=== PATIENT | male | born 1955 | race Caucasian/White ===

== ENCOUNTER 2018-04-17 13:36 | Inpatient (IN) | payer OTHER ==
[2018-04-17 15:01] VITALS: BMI 31.4
--- NOTE | 2018-04-17 18:53 | HP ---
CIWA Score Nausea/Vomitin-No Nausea/No Vomiting ("BAD ACID") Muscle Tremors: 4-Moderate,w/Arms Extend Anxiety: 4-Mod. Anxious/Guarded Agitation: 3 Paroxysmal Sweats: 1-Minimal Palms Moist Orientation: 0-Oriented Tacttile Disturbances: 0-None Auditory Disturbances: 0-None Visual Disturbances: 0-None Headache: 0-None Present CIWA-Ar Total Score: 12 - Admission Criteria [facility]ASAS Guidelines: Admission for Medically Managed Detox: Requires at least one of the followin. CIWA greater than 12 2. Seizures within the past 24 hours 3. Delirium tremens within the past 24 hours 4. Hallucinations within the past 24 hours 5. Acute intervention needed for co occurring medical disorder 6. Acute intervention needed for co occurring psychiatric disorder 7. Severe withdrawal that cannot be handled at a lower level of care (continued vomiting, continued diarrhea, abnormal vital signs) requiring intravenous medication and/or fluids 8. Patient presents the following: CIWA greater than 12 Admission Criteria Met: Admission criteria met Admission ROS S - HPI Chief Complaint: "TIRED OF WAKING UP EVERYDAY DRINKING AND USING PILLS. I'M NOT A YOUNG KID ANYMORE". History of Present Illness: NEGATIVE ENVIRONMENTAL SAMPLER REPORT. PT IS A 62 Y/O MALE WITH A HX OF ALCOHOL, KLONOPIN AND XANAX DEPENDENCE ON METHADONE MAINTENANCE WITH METHADONE 180 MG PO DAILY AT [facility]- [facility] REPORTS LAST DOSE RECEIVED TODAY AND SEEKING DETOX TX. PT WAS HERE IN REHAB IN 2010 AND STATES HE HAS BEEN TO OTHER TREATMENT FACILITIES FOR MARY TREATMENTS. PT HAS BEEN DRINKING ALCOHOL SINCE THE AGE OF 11 AND USING BENZOS SINCE 49 Y/O. PT REPORTS HX OF "BAD ACID REFLUX" AND TAKING OMEPRAZOLE. ALSO STATES HE TAKES ASPIRIN 81 MG DAILY A PRECAUTION STATING HIS PMD'S ADVICE. PT REPORTS HE HAS PRIMARY CARE AT [facility] ON [address] [place] [address]. PH: [phone] WOODARD. Exam Limitations: No Limitations - Ebola screening Have you traveled outside of the country in the last 21 days: No Have you had contact with anyone from an Ebola affected area: No Have you been sick,other than usual withdrawal symptoms: No - Review of Systems Constitutional: Changes in sleep EENT: reports: Blurred Vision (USES READING GLASSES), Dental Problems Respiratory: reports: No Symptoms reported Cardiac: reports: No Symptoms Reported GI: reports: Indigestion : reports: Dysuria, Frequency (STATES HE WAS TAKING FLOMAX BUT STOPPED.) Musculoskeletal: reports: Back Pain, Joint Pain, Muscle Pain, Joint Stiffness Integumentary: reports: Bruising (SOMETIMES) Neuro: reports: Headache, Tremors Endocrine: reports: No Symptoms Reported Hematology: reports: Anemia ("IN 2017 AT THE PROGRAM"), Other ( 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) Psychiatric: reports: Orientated x3, Anxious Other Systems: Reviewed and Negative Patient History - Patient Medical History Hx Anemia: Yes (IRON PILL IN THE PAST) Hx Asthma: No Hx Cardiac Disorders: No Hx Hypertension: No Hx Hypercholesterolemia: No HX Cerebrovascular Accident: No Hx Seizures: No Hx Diabetes: No Hx Gastrointestinal Disorders: Yes (OMEPRAZOLE) Hx Genitourinary Disorders: Yes (FREQUENCY) Hx Sexually Transmitted Disorders: No (DENIES) Hx Renal Disease (ESRD): No Hx Thyroid Disease: No Hx Human Immunodeficiency Virus (HIV): No (NEGATIVE HX) Hx Hepatitis C: Yes ("I WAS EXPOSED TO IT; NUMBERS WERE LOW-20 YRS AGO") Hx Depression: No Hx Suicide Attempt: No (DENIES S/I) Hx Bipolar Disorder: No Hx Schizophrenia: No - Patient Surgical History Past Surgical History: Yes Hx Neurologic Surgery: No Hx Cataract Extraction: No Hx Cardiac Surgery: No Hx Lung Surgery: No Hx Breast Surgery: No Hx Breast Biopsy: No Hx Abdominal Surgery: No Hx Appendectomy: Yes (40 YRS AGO) Hx Cholecystectomy: No Hx Genitourinary Surgery: No Hx Orthopedic Surgery: No Anesthesia Reaction: No - PPD History Previous Implant?: Yes (AT [facility]) Documented Results: Negative w/o proof Implanted On Prior [facility] Admission?: No PPD to be Administered?: Yes - Reproductive History Patient is a Female of Child Bearing Age (11 -55 yrs old): No - Smoking Cessation Smoking history: Current every day smoker Have you smoked in the past 12 months: Yes Aproximately how many cigarettes per day: 4 Hx Chewing Tobacco Use: No Initiated information on smoking cessation: Yes 'Breaking Loose' booklet given: 04/17/18 - Substance & Tx. History Hx Alcohol Use: Yes Hx Substance Use: Yes Substance Use Type: Alcohol, Heroin, Tranquilizers Hx Substance Use Treatment: Yes - Substances Abused Alcohol Route: Oral Frequency: Daily Amount used: 1/2 [place] Age of first use: 11 Date of Last Use: 04/17/18 Benzodiazepine (Klonopin) Route: Oral Frequency: Daily Amount used: 3/1MG Age of first use: 49 Date of Last Use: 04/17/18 Alprazolam (Xanax) Route: Oral Frequency: Daily Amount used: 1/2MG Age of first use: 49 Date of Last Use: 04/17/18 Family Disease History - Family Disease History Family Disease History: Diabetes: Grandparent (DIALYSIS), CA: Father (PROSTATE CA), Mother (CA BLADDER;QUAD BYPASS), Other: Grandparent, Mother Admission Physical Exam [facility] - Vital Signs Vital Signs: Vital Signs - 24 hr 04/17/18 14:58 Temperature 97.1 F L Pulse Rate 74 Respiratory 18 Rate Blood Pressure 117/73 - Physical General Appearance: Yes: Mild Distress, Irritable, Anxious HEENTM: Yes: EOMI, Normocephalic, CAMILO, Pharynx Normal Respiratory: Yes: Chest Non-Tender, Lungs Clear, Normal Breath Sounds, No Respiratory Distress Neck: Yes: No masses,lesions,Nodules, Supple, Trachea in good position - Diagnostic (1) Alcohol dependence with uncomplicated withdrawal Current Visit: Yes Status: Acute (2) Sedative, hypnotic or anxiolytic dependence with withdrawal, uncomplicated Current Visit: Yes Status: Acute (3) GERD (gastroesophageal reflux disease) Current Visit: Yes Status: Chronic Qualifiers: Esophagitis presence: esophagitis presence not specified Qualified Code(s) : K21.9 - Gastro-esophageal reflux disease without esophagitis (4) History of anemia Current Visit: Yes Status: Suspected Cleared for Admission [facility] - Detox or Rehab [facility] Level of Care: Medically Managed Detox Regimen/Protocol: Valium [facility] Breath Alcohol Content Breath Alcohol Content: 0.029 Urine Drug Screen - Results Drug Screen Negative: No Urine Drug Screen Results: EMILIE-Cocaine, OPI-Opiates, BZO-Benzodiazepines, MTD- Methadone, FEN-Fentanyl
[2018-04-17] MEDS ORDERED: guaiFENesin/D-METHORPHAN HB 10 ML UNIT-DOSE CUPS PO PRN (19:43)
[2018-04-17] MEDS ORDERED: P-EPHED 60MG/TRIPROLIDI 2.5MG TABLET PO PRN (19:43)
[2018-04-17] MEDS ORDERED: MAGNESIUM CITRATE 300 ML BOTTLE PO PRN (19:43)
[2018-04-17] MEDS ORDERED: diazePAM 5 MG TABLET PO ONE (19:43)
[2018-04-17] MEDS ORDERED: IBUPROFEN 400 MG TABLET (FP) PO PRN (19:43)
[2018-04-17] MEDS ORDERED: MENTHOL/PHENOL 1 EACH UD MM PRN (19:43)
[2018-04-17] MEDS ORDERED: ACETAMINOPHEN 325 MG TABLET (FP) PO PRN (19:43)
[2018-04-17] MEDS ORDERED: LOPERAMIDE HCL 2 MG CAPSULE PO PRN (19:43)
[2018-04-17] MEDS: THIAMINE HCL 100 MG TABLET (FP) PO SCH (21:26)
[2018-04-17] MEDS: NICOTINE 7 MG/24 HOURS TOPICAL PATCH TD SCH (21:42)
[2018-04-17] MEDS: MAG HYDROX/AL HYDROX/SIMETH 30 ML UNIT-DOSE CUP PO PRN (21:55)
[2018-04-17] MEDS ORDERED: MELATONIN 5 MG TABLETS PO PRN (22:00)
[2018-04-17] MEDS: diazePAM 5 MG TABLET PO SCH (23:31)
[2018-04-18] MEDS: diazePAM 5 MG TABLET PO SCH ×3 (05:18→22:08)
[2018-04-18] MEDS ORDERED: METHADONE HCL 10 MG TABLET PO SCH (09:15)
[2018-04-18] MEDS: NICOTINE 7 MG/24 HOURS TOPICAL PATCH TD SCH (10:13)
[2018-04-18] MEDS: PRENATAL VITAMINS W/ FOLIC ACID TABLET (FP) PO SCH (10:13)
[2018-04-18] MEDS: diazePAM 5 MG TABLET PO PRN (10:14)
[2018-04-18] MEDS ORDERED: PANTOPRAZOLE 20 MG TABLET (FP) PO ONE (10:21)
[2018-04-18] MEDS ORDERED: METHADONE 160 MG, METHADONE 20 MG PO SCH (10:30)
[2018-04-18] MEDS ORDERED: METHADONE HCL 10 MG TABLET ONE (10:42)
[2018-04-18] MEDS ORDERED: METHADONE HCL 40 MG DISPERSABLE TABLET ONE (10:43)
[2018-04-18 11:01] LABS: HEMATOCRIT 33.1 % (35.4-49); HEMOGLOBIN 11.3 GM/dL (11.7-16.9); MCH 27.5 pg (25.7-33.7); MEAN PLT VOLUME 7.5 fl (7.5-11.1); PLATELET COUNT 278 K/MM3 (134-434); RBC 4.09 M/mm3 (4.00-5.60); RDW 14.1 % (11.9-15.9); WHITE BLOOD COUNT 5.4 K/mm3 (4.0-10.0)
[2018-04-18 11:27] LABS: ALBUMIN 3.1 g/dl (3.4-5.0); ALK PHOS 70 U/L (45-117); ANION GAP 5 MMOL/L (8-16); BILIRUBIN,TOTAL 0.5 mg/dL (0.2-1); BLOOD UREA NITROGEN 22 mg/dL (7-18); CALCIUM 8.5 mg/dL (8.5-10.1); CHLORIDE 105 mmol/L (98-107); CO2 32 mmol/L (21-32); CREATININE 0.9 mg/dL (0.55-1.3); GLUCOSE,RANDOM 69 mg/dL (74-106); POTASSIUM 4.2 mmol/L (3.5-5.1); SGOT/AST 21 U/L (15-37); SGPT/ALT 22 U/L (13-61); SODIUM 142 mmol/L (136-145)
[2018-04-18] MEDS: METHADONE 160 MG, METHADONE 20 MG PO SCH (11:30)
[2018-04-18] MEDS: ASPIRIN 81 MG CHEWABLE TABLETS PO SCH (13:09)
[2018-04-18] MEDS: amLODIPine BESYLATE 2.5 MG TABLET (FP) PO SCH (13:09)
--- NOTE | 2018-04-18 13:24 | EKG ---
Test Reason : Blood Pressure : / mmHG Vent. Rate : 061 BPM Atrial Rate : 061 BPM P-R Int : 178 ms QRS Dur : 084 ms QT Int : 438 ms P-R-T Axes : 031 004 033 degrees QTc Int : 440 ms POOR DATA QUALITY, INTERPRETATION MAY BE ADVERSELY AFFECTED NORMAL SINUS RHYTHM ABNORMAL ECG NO PREVIOUS ECGS AVAILABLE Confirmed by ANASTASIA MORRISON MD ([id number]) on 04/18/2018 1:24:05 PM Referred By: Confirmed By:ANASTASIA MORRISON MD
--- NOTE | 2018-04-18 16:23 | PN ---
S CIWA - CIWA Score Nausea/Vomitin-No Nausea/No Vomiting Muscle Tremors: 3 Anxiety: 3 Agitation: 2 Paroxysmal Sweats: No Perspiration Orientation: 0-Oriented Tacttile Disturbances: 2-Mild Itch/Numbness/Burn Auditory Disturbances: 2-Mild Harshness/Frighten Visual Disturbances: 0-None Headache: 0-None Present CIWA-Ar Total Score: 12 BHS Progress Note (SOAP) Subjective: Stomach Cramping, Anxious, Body Aches, Tremors. Objective: PATIENT A & O X 3, OBSERVED AMBULATING ON UNIT WITH ASSISTANCE OF A WALKER. IN NO ACUTE DISTRESS. 04/18/18 16:21 Vital Signs Temperature 97.8 F 04/18/18 13:39 Pulse Rate 77 04/18/18 13:39 Respiratory Rate 18 04/18/18 13:39 Blood Pressure 94/65 04/18/18 13:39 O2 Sat by Pulse Oximetry (%) Laboratory Tests 04/18/18 04/18/18 04/18/18 07:50 07:50 07:50 WBC 5.4 RBC 4.09 Hgb 11.3 L Hct 33.1 L MCV 81.0 MCH 27.5 MCHC 34.0 RDW 14.1 Plt Count 278 MPV 7.5 Sodium 142 Potassium 4.2 Chloride 105 Carbon Dioxide 32 Anion Gap 5 L BUN 22 H Creatinine 0.9 Creat Clearance w eGFR > 60 Random Glucose 69 L Calcium 8.5 Total Bilirubin 0.5 AST 21 ALT 22 Alkaline Phosphatase 70 Total Protein 6.0 L Albumin 3.1 L RPR Titer Nonreactive LABS NOTED. UA RESULTS PENDING. Assessment: 04/18/18 16:22 WITHDRAWAL SYMPTOMS. Plan: CONTINUE DETOX. INCREASE DAILY PO FLUID INTAKE.
[2018-04-18 16:26] LABS: URINE APPEARANCE SLCLOUDY; URINE BILIRUBIN NEGATIVE (<2.0 mg/dL); URINE COLOR YELLOW; URINE GLUCOSE (UA) NEGATIVE (NEGATIVE); URINE KETONE NEGATIVE (NEGATIVE); URINE LEUK ESTERASE TRACE (NEGATIVE); URINE NITRITE NEGATIVE (NEGATIVE); URINE PROTEIN NEGATIVE (NEGATIVE); URINE UROBILINOGEN NEGATIVE mg/dL (0.2-1.0)
[2018-04-18 16:38] LABS: EPI CELLS RARE /HPF (FEW); URINE BACTERIA RARE /hpf (NONE SEEN); URINE HYALINE CAST 1 /lpf; URINE MUCUS RARE
[2018-04-18] MEDS: MAG HYDROX/AL HYDROX/SIMETH 30 ML UNIT-DOSE CUP PO PRN (17:50)
[2018-04-18] MEDS: THIAMINE HCL 100 MG TABLET (FP) PO SCH (22:08)
[2018-04-19] MEDS ORDERED: METHADONE HCL 10 MG TABLET ONE (04:49)
[2018-04-19] MEDS ORDERED: METHADONE HCL 40 MG DISPERSABLE TABLET ONE (04:50)
[2018-04-19] MEDS: METHADONE 160 MG, METHADONE 20 MG PO SCH (05:19)
[2018-04-19] MEDS ORDERED: PANTOPRAZOLE 20 MG TABLET (FP) PO SCH (06:00)
[2018-04-19] MEDS: ASPIRIN 81 MG CHEWABLE TABLETS PO SCH (10:22)
[2018-04-19] MEDS: diazePAM 5 MG TABLET PO SCH ×2 (10:22→22:10)
[2018-04-19] MEDS: NICOTINE 7 MG/24 HOURS TOPICAL PATCH TD SCH (10:22)
[2018-04-19] MEDS: PRENATAL VITAMINS W/ FOLIC ACID TABLET (FP) PO SCH (10:22)
[2018-04-19] MEDS: amLODIPine BESYLATE 2.5 MG TABLET (FP) PO SCH (10:25)
--- NOTE | 2018-04-19 14:37 | PN ---
S CIWA - CIWA Score Nausea/Vomitin-No Nausea/No Vomiting Muscle Tremors: 2 Anxiety: 1-Mildly Anxious Agitation: 2 Paroxysmal Sweats: 1-Minimal Palms Moist Orientation: 0-Oriented Tacttile Disturbances: 0-None Auditory Disturbances: 0-None Visual Disturbances: 0-None Headache: 1-Very Mild CIWA-Ar Total Score: 7 BHS Progress Note (SOAP) Subjective: long history of gerd treated with naxium begin protonic po daily 20 mg begin carafate 1 G po bid before meal discontinue Motrin discontinue Maalox ambulate with walker x 3 years due to spinal surgery with right leg weakness tremor sweating anxiousness Objective: 04/19/18 14:37 Vital Signs Temperature 98.1 F 04/19/18 13:22 Pulse Rate 84 04/19/18 13:22 Respiratory Rate 16 04/19/18 13:22 Blood Pressure 126/72 04/19/18 13:22 O2 Sat by Pulse Oximetry (%) Laboratory Last Values WBC 5.4 K/mm3 (4.0-10.0) 04/18/18 07:50 RBC 4.09 M/mm3 (4.00-5.60) 04/18/18 07:50 Hgb 11.3 GM/dL (11.7-16.9) L 04/18/18 07:50 Hct 33.1 % (35.4-49) L 04/18/18 07:50 MCV 81.0 fl (80-96) 04/18/18 07:50 MCH 27.5 pg (25.7-33.7) 04/18/18 07:50 MCHC 34.0 g/dl (32.0-35.9) 04/18/18 07:50 RDW 14.1 % (11.9-15.9) 04/18/18 07:50 Plt Count 278 K/MM3 (134-434) 04/18/18 07:50 MPV 7.5 fl (7.5-11.1) 04/18/18 07:50 Sodium 142 mmol/L (136-145) 04/18/18 07:50 Potassium 4.2 mmol/L (3.5-5.1) 04/18/18 07:50 Chloride 105 mmol/L (98-107) 04/18/18 07:50 Carbon Dioxide 32 mmol/L (21-32) 04/18/18 07:50 Anion Gap 5 MMOL/L (8-16) L 04/18/18 07:50 BUN 22 mg/dL (7-18) H 04/18/18 07:50 Creatinine 0.9 mg/dL (0.55-1.3) 04/18/18 07:50 Creat Clearance w eGFR > 60 (>60) 04/18/18 07:50 Random Glucose 69 mg/dL (74-106) L 04/18/18 07:50 Calcium 8.5 mg/dL (8.5-10.1) 04/18/18 07:50 Total Bilirubin 0.5 mg/dL (0.2-1) 04/18/18 07:50 AST 21 U/L (15-37) 04/18/18 07:50 ALT 22 U/L (13-61) 04/18/18 07:50 Alkaline Phosphatase 70 U/L (45-117) 04/18/18 07:50 Total Protein 6.0 g/dl (6.4-8.2) L 04/18/18 07:50 Albumin 3.1 g/dl (3.4-5.0) L 04/18/18 07:50 Urine Color Yellow 04/18/18 13:53 Urine Appearance Slcloudy 04/18/18 13:53 Urine pH 5.0 (5.0-8.0) 04/18/18 13:53 Ur Specific [place] 1.020 (1.010-1.035) 04/18/18 13:53 Urine Protein Negative (NEGATIVE) 04/18/18 13:53 Urine Glucose (UA) Negative (NEGATIVE) 04/18/18 13:53 Urine Ketones Negative (NEGATIVE) 04/18/18 13:53 Urine Blood Negative (NEGATIVE) 04/18/18 13:53 Urine Nitrite Negative (NEGATIVE) 04/18/18 13:53 Urine Bilirubin Negative (<2.0 mg/dL) 04/18/18 13:53 Urine Urobilinogen Negative mg/dL (0.2-1.0) 04/18/18 13:53 Ur Leukocyte Esterase Trace (NEGATIVE) 04/18/18 13:53 Urine WBC (Auto) 1 /hpf (3-5) 04/18/18 13:53 Urine RBC (Auto) <1 /hpf (0-3) 04/18/18 13:53 Ur Epithelial Cells Rare /HPF (FEW) 04/18/18 13:53 Urine Bacteria Rare /hpf (NONE SEEN) 04/18/18 13:53 Hyaline Casts 1 /lpf 04/18/18 13:53 Urine Mucus Rare 04/18/18 13:53 RPR Titer Nonreactive (NONREACTIVE) 04/18/18 07:50 lab noted Assessment: 04/19/18 14:37 withdrawal sx gerd Plan: continue detox carafate zantac 300 mg bid
[2018-04-19] MEDS: diazePAM 5 MG TABLET PO PRN (14:40)
[2018-04-19] MEDS: MAGNESIUM HYDROX 2400MG/30ML ORAL SUSPENSION 30 ML CUP PO PRN (14:41)
[2018-04-19] MEDS: THIAMINE HCL 100 MG TABLET (FP) PO SCH (22:10)
[2018-04-19] MEDS: SUCRALFATE 1 GM TABLET (FP) PO SCH (23:05)
[2018-04-20] MEDS: MAG HYDROX/AL HYDROX/SIMETH 30 ML UNIT-DOSE CUP PO ONE ×2 (01:01→15:02)
[2018-04-20] MEDS ORDERED: METHADONE HCL 10 MG TABLET ONE (04:20)
[2018-04-20] MEDS ORDERED: METHADONE HCL 40 MG DISPERSABLE TABLET ONE (04:21)
[2018-04-20] MEDS: METHADONE 160 MG, METHADONE 20 MG PO SCH (05:23)
[2018-04-20] MEDS: diazePAM 5 MG TABLET PO PRN ×3 (05:27→19:40)
[2018-04-20] MEDS: MAGNESIUM HYDROX 2400MG/30ML ORAL SUSPENSION 30 ML CUP PO PRN (05:29)
[2018-04-20] MEDS: SUCRALFATE 1 GM TABLET (FP) PO SCH ×2 (08:00→17:37)
[2018-04-20] MEDS ORDERED: PANTOPRAZOLE 20 MG TABLET (FP) PO SCH ×2 (10:00→11:09)
[2018-04-20] MEDS: ASPIRIN 81 MG CHEWABLE TABLETS PO SCH (10:08)
[2018-04-20] MEDS: diazePAM 5 MG TABLET PO SCH ×2 (10:08→22:07)
[2018-04-20] MEDS: PRENATAL VITAMINS W/ FOLIC ACID TABLET (FP) PO SCH (10:09)
[2018-04-20] MEDS: NICOTINE 7 MG/24 HOURS TOPICAL PATCH TD SCH (10:09)
[2018-04-20] MEDS: amLODIPine BESYLATE 2.5 MG TABLET (FP) PO SCH ×2 (10:09→10:11)
[2018-04-20] MEDS ORDERED: MAG HYDROX/AL HYDROX/SIMETH 30 ML UNIT-DOSE CUP PO ONE (11:09)
--- NOTE | 2018-04-20 11:20 | PN ---
BHS Progress Note (SOAP) Subjective: increase carafate increase protonix feeling better ambulate with walker mild tremor less sweating Objective: 04/20/18 11:40 Vital Signs Temperature 98.8 F 04/20/18 09:15 Pulse Rate 66 04/20/18 09:15 Respiratory Rate 18 04/20/18 09:15 Blood Pressure 91/57 L 04/20/18 09:15 O2 Sat by Pulse Oximetry (%) Laboratory Last Values WBC 5.4 K/mm3 (4.0-10.0) 04/18/18 07:50 RBC 4.09 M/mm3 (4.00-5.60) 04/18/18 07:50 Hgb 11.3 GM/dL (11.7-16.9) L 04/18/18 07:50 Hct 33.1 % (35.4-49) L 04/18/18 07:50 MCV 81.0 fl (80-96) 04/18/18 07:50 MCH 27.5 pg (25.7-33.7) 04/18/18 07:50 MCHC 34.0 g/dl (32.0-35.9) 04/18/18 07:50 RDW 14.1 % (11.9-15.9) 04/18/18 07:50 Plt Count 278 K/MM3 (134-434) 04/18/18 07:50 MPV 7.5 fl (7.5-11.1) 04/18/18 07:50 Sodium 142 mmol/L (136-145) 04/18/18 07:50 Potassium 4.2 mmol/L (3.5-5.1) 04/18/18 07:50 Chloride 105 mmol/L (98-107) 04/18/18 07:50 Carbon Dioxide 32 mmol/L (21-32) 04/18/18 07:50 Anion Gap 5 MMOL/L (8-16) L 04/18/18 07:50 BUN 22 mg/dL (7-18) H 04/18/18 07:50 Creatinine 0.9 mg/dL (0.55-1.3) 04/18/18 07:50 Creat Clearance w eGFR > 60 (>60) 04/18/18 07:50 Random Glucose 69 mg/dL (74-106) L 04/18/18 07:50 Calcium 8.5 mg/dL (8.5-10.1) 04/18/18 07:50 Total Bilirubin 0.5 mg/dL (0.2-1) 04/18/18 07:50 AST 21 U/L (15-37) 04/18/18 07:50 ALT 22 U/L (13-61) 04/18/18 07:50 Alkaline Phosphatase 70 U/L (45-117) 04/18/18 07:50 Total Protein 6.0 g/dl (6.4-8.2) L 04/18/18 07:50 Albumin 3.1 g/dl (3.4-5.0) L 04/18/18 07:50 Urine Color Yellow 04/18/18 13:53 Urine Appearance Slcloudy 04/18/18 13:53 Urine pH 5.0 (5.0-8.0) 04/18/18 13:53 Ur Specific [place] 1.020 (1.010-1.035) 04/18/18 13:53 Urine Protein Negative (NEGATIVE) 04/18/18 13:53 Urine Glucose (UA) Negative (NEGATIVE) 04/18/18 13:53 Urine Ketones Negative (NEGATIVE) 04/18/18 13:53 Urine Blood Negative (NEGATIVE) 04/18/18 13:53 Urine Nitrite Negative (NEGATIVE) 04/18/18 13:53 Urine Bilirubin Negative (<2.0 mg/dL) 04/18/18 13:53 Urine Urobilinogen Negative mg/dL (0.2-1.0) 04/18/18 13:53 Ur Leukocyte Esterase Trace (NEGATIVE) 04/18/18 13:53 Urine WBC (Auto) 1 /hpf (3-5) 04/18/18 13:53 Urine RBC (Auto) <1 /hpf (0-3) 04/18/18 13:53 Ur Epithelial Cells Rare /HPF (FEW) 04/18/18 13:53 Urine Bacteria Rare /hpf (NONE SEEN) 04/18/18 13:53 Hyaline Casts 1 /lpf 04/18/18 13:53 Urine Mucus Rare 04/18/18 13:53 RPR Titer Nonreactive (NONREACTIVE) 04/18/18 07:50 lab noted Assessment: 04/20/18 11:40 mild withdrawal sx Plan: continue detox
[2018-04-20] MEDS ORDERED: SUCRALFATE 1 GM TABLET (FP) PO SCH (11:30)
[2018-04-20] MEDS ORDERED: PANTOPRAZOLE 20 MG TABLET (FP) PO ONE (14:00)
[2018-04-20] MEDS: THIAMINE HCL 100 MG TABLET (FP) PO SCH (22:07)
[2018-04-21] MEDS ORDERED: METHADONE HCL 10 MG TABLET ONE (04:24)
[2018-04-21] MEDS ORDERED: METHADONE HCL 40 MG DISPERSABLE TABLET ONE (04:25)
[2018-04-21] MEDS: METHADONE 160 MG, METHADONE 20 MG PO SCH (05:57)
[2018-04-21] MEDS: SUCRALFATE 1 GM TABLET (FP) PO SCH (06:27)
[2018-04-21 09:09] VITALS: BP 101/62; PULSE 68; TEMP 97.1
[2018-04-21] MEDS ORDERED: diazePAM 5 MG TABLET PO SCH (10:00)
[2018-04-21] MEDS ORDERED: PANTOPRAZOLE 40 MG TABLET (FP) PO SCH (10:00)
[2018-04-21] MEDS: ASPIRIN 81 MG CHEWABLE TABLETS PO SCH (11:44)
[2018-04-21] MEDS: amLODIPine BESYLATE 2.5 MG TABLET (FP) PO SCH (11:44)
[2018-04-21] MEDS: NICOTINE 7 MG/24 HOURS TOPICAL PATCH TD SCH (11:44)
[2018-04-21] MEDS: PRENATAL VITAMINS W/ FOLIC ACID TABLET (FP) PO SCH (11:45)
--- NOTE | 2018-04-21 12:22 | DS ---
[facility] Detox Discharge Summary Admission Date: 04/17/18 Discharge Date: 04/21/18 - History Present History: Alcohol Dependence Additional Comments: 62 years old male admitted on 04/17/18 for alcohol withdrawal stabilization completed detox regimen alert ambulate with walker no acute distress aftercare as per counselor arrangement - Physical Exam Results Vital Signs: Vital Signs Temperature 97.1 F L 04/21/18 09:08 Pulse Rate 68 04/21/18 09:08 Respiratory Rate 16 04/21/18 09:08 Blood Pressure 101/62 04/21/18 09:08 O2 Sat by Pulse Oximetry (%) Pertinent Admission Physical Exam Findings: alcohol withdrawal sx Laboratory Last Values WBC 5.4 K/mm3 (4.0-10.0) 04/18/18 07:50 RBC 4.09 M/mm3 (4.00-5.60) 04/18/18 07:50 Hgb 11.3 GM/dL (11.7-16.9) L 04/18/18 07:50 Hct 33.1 % (35.4-49) L 04/18/18 07:50 MCV 81.0 fl (80-96) 04/18/18 07:50 MCH 27.5 pg (25.7-33.7) 04/18/18 07:50 MCHC 34.0 g/dl (32.0-35.9) 04/18/18 07:50 RDW 14.1 % (11.9-15.9) 04/18/18 07:50 Plt Count 278 K/MM3 (134-434) 04/18/18 07:50 MPV 7.5 fl (7.5-11.1) 04/18/18 07:50 Sodium 142 mmol/L (136-145) 04/18/18 07:50 Potassium 4.2 mmol/L (3.5-5.1) 04/18/18 07:50 Chloride 105 mmol/L (98-107) 04/18/18 07:50 Carbon Dioxide 32 mmol/L (21-32) 04/18/18 07:50 Anion Gap 5 MMOL/L (8-16) L 04/18/18 07:50 BUN 22 mg/dL (7-18) H 04/18/18 07:50 Creatinine 0.9 mg/dL (0.55-1.3) 04/18/18 07:50 Creat Clearance w eGFR > 60 (>60) 04/18/18 07:50 Random Glucose 69 mg/dL (74-106) L 04/18/18 07:50 Calcium 8.5 mg/dL (8.5-10.1) 04/18/18 07:50 Total Bilirubin 0.5 mg/dL (0.2-1) 04/18/18 07:50 AST 21 U/L (15-37) 04/18/18 07:50 ALT 22 U/L (13-61) 04/18/18 07:50 Alkaline Phosphatase 70 U/L (45-117) 04/18/18 07:50 Total Protein 6.0 g/dl (6.4-8.2) L 04/18/18 07:50 Albumin 3.1 g/dl (3.4-5.0) L 04/18/18 07:50 Urine Color Yellow 04/18/18 13:53 Urine Appearance Slcloudy 04/18/18 13:53 Urine pH 5.0 (5.0-8.0) 04/18/18 13:53 Ur Specific [place] 1.020 (1.010-1.035) 04/18/18 13:53 Urine Protein Negative (NEGATIVE) 04/18/18 13:53 Urine Glucose (UA) Negative (NEGATIVE) 04/18/18 13:53 Urine Ketones Negative (NEGATIVE) 04/18/18 13:53 Urine Blood Negative (NEGATIVE) 04/18/18 13:53 Urine Nitrite Negative (NEGATIVE) 04/18/18 13:53 Urine Bilirubin Negative (<2.0 mg/dL) 04/18/18 13:53 Urine Urobilinogen Negative mg/dL (0.2-1.0) 04/18/18 13:53 Ur Leukocyte Esterase Trace (NEGATIVE) 04/18/18 13:53 Urine WBC (Auto) 1 /hpf (3-5) 04/18/18 13:53 Urine RBC (Auto) <1 /hpf (0-3) 04/18/18 13:53 Ur Epithelial Cells Rare /HPF (FEW) 04/18/18 13:53 Urine Bacteria Rare /hpf (NONE SEEN) 04/18/18 13:53 Hyaline Casts 1 /lpf 04/18/18 13:53 Urine Mucus Rare 04/18/18 13:53 RPR Titer Nonreactive (NONREACTIVE) 04/18/18 07:50 lab noted - Treatment Hospital Course: Detox Protocol Followed, Detoxed Safely, Responded well, Discharged Condition Good, Rehab Referral Accepted Patient has Accepted a Rehab Referral to: as per counselor arrangement - Medication Discharge Medications: Ambulatory Orders Aspirin 81 mg PO DAILY 04/17/18 Methadone [Dolophine -] 180 mg PO DAILY 04/17/18 Omeprazole 20 mg PO DAILY 04/17/18 Ranitidine [Zantac -] 300 mg PO BID 04/19/18 Sucralfate [Carafate -] 1 gm PO ACBK 04/19/18 Amlodipine Besylate 2.5 mg PO DAILY #14 tablet 04/20/18 Sucralfate [Carafate -] 1 gm PO TIDAC #60 tablet 04/20/18 - Diagnosis (1) Alcohol dependence with uncomplicated withdrawal Current Visit: Yes Status: Acute (2) GERD (gastroesophageal reflux disease) Current Visit: Yes Status: Chronic Qualifiers: Esophagitis presence: esophagitis presence not specified Qualified Code(s) : K21.9 - Gastro-esophageal reflux disease without esophagitis - AMA Did Patient Leave Against Medical Advice: No
== END 2018-04-21 13:48 | disposition home or self-care (01) | DRG 775 ==
LOC: YASAS 13:36 → Y3N 17:30
PROVIDERS: ADMIT Neuromusculoskeletal Medicine & OMM; ATTEND Neuromusculoskeletal Medicine & OMM
PROC: HZ2ZZZZ Detoxification Services for Substance Abuse Treatment (ICD-10-PCS; principal; 2018-04-17)
DX: F10.230 Alcohol dependence with withdrawal, uncomplicated (principal); F13.230 Sedative, hypnotic or anxiolytic dependence with withdrawal, uncomplicated; K21.9 Gastro-esophageal reflux disease without esophagitis; I83.93 Asymptomatic varicose veins of bilateral lower extremities; Z86.2 Personal history of diseases of the blood and blood-forming organs and certain disorders involving the immune mechanism; Z86.19 Personal history of other infectious and parasitic diseases; R26.89 Other abnormalities of gait and mobility; Z99.89 Dependence on other enabling machines and devices
CPT/HCPCS: 36415; 80053; 81003; 81015; 85027; 86593; 93005; 93010

== ENCOUNTER 2019-04-01 11:41 | Inpatient (IN) | payer MEDICARE, OTHER ==
[2019-04-01 13:44] VITALS: BMI 32.0
--- NOTE | 2019-04-01 19:37 | HP ---
COWS - Scale Resting Pulse: 0= [place] 80 or Below Sweatin=Flushed/Facial Moisture Restless Observation: 0= Sits Still Pupil Size: 1= Pupils >than Normal Bone or Joint Aches: 2= Severe Diffuse Aches Runny Nose/ Eye Tearin= Runny Nose/Eyes GI Upset > 30mins: 1= Stomach Cramp Tremor Observation: 4= Gross Tremor/Twitching Yawning Observation: 1= 1-2x During Session Anxiety or Irritability: 4=Extreme Anxiety Goose Flesh Skin: 0=Smooth Skin COWS Score: 17 CIWA Score Nausea/Vomitin-Mild Nausea/No Vomiting Muscle Tremors: 4-Moderate,w/Arms Extend Anxiety: 4-Mod. Anxious/Guarded Agitation: 4-Moderately Restless Paroxysmal Sweats: 3 Orientation: 2-Disoriented Date<2 days Tacttile Disturbances: 0-None Auditory Disturbances: 0-None Visual Disturbances: 0-None Headache: 0-None Present CIWA-Ar Total Score: 18 - Admission Criteria OASAS Guidelines: Admission for Medically Managed Detox: Requires at least one of the followin. CIWA greater than 12 2. Seizures within the past 24 hours 3. Delirium tremens within the past 24 hours 4. Hallucinations within the past 24 hours 5. Acute intervention needed for co occurring medical disorder 6. Acute intervention needed for co occurring psychiatric disorder 7. Severe withdrawal that cannot be handled at a lower level of care (continued vomiting, continued diarrhea, abnormal vital signs) requiring intravenous medication and/or fluids 8. Admitting History and Physical - Smoking History Smoking history: Current every day smoker Have you smoked in the past 12 months: Yes Aproximately how many cigarettes per day: 4 - Alcohol/Substance Use Hx Alcohol Use: Yes Admission ROS [facility] Chief Complaint: Alcohol, Xanax and Opioid withdrawal symptoms Allergies/Adverse Reactions: Allergies Allergy/AdvReac Type Severity Reaction Status Date / Time No Known Allergies Allergy Verified 04/01/19 13:28 History of Present Illness: 63 years old male with a long history of Alcohol, Benzodiazepine and Opioid dependence is seeking admission to detox. He was last admitted at [facility] for the period 04/17/2018 - 04/12/2018. Patient reports that that his last admission was at [facility]. He is on Methadone maintenance therapy with Methadone 180mg tablet oral daily. Dose is yet to be confirmed by the nurse. He reports medical history of anemia, GERD, BPH, Hep. C. and denies psych. history at this time. Patient ambulates with a walker Confidential Drug Utilization Report Search Terms: alonso santana, 1955 Search Date: 04/01/2019 07:36:00 PM The Drug Utilization Report below displays all of the controlled substance prescriptions, if any, that your patient has filled in the last twelve months. The information displayed on this report is compiled from pharmacy submissions to the Department, and accurately reflects the information as submitted by the pharmacies. There are no results for the search terms that you entered. Exam Limitations: Physical Impairment (ambulates with a walker) - Ebola screening Have you traveled outside of the country in the last 21 days: No Have you had contact with anyone from an Ebola affected area: No Do you have a fever: No - Review of Systems Constitutional: Chills, Malaise, Night Sweats, Changes in sleep EENT: reports: Recent change in vision (scheduled for a follow up with food service cashier) Respiratory: reports: No Symptoms reported Cardiac: reports: No Symptoms Reported GI: reports: Diarrhea, Nausea, Poor Appetite, Poor Fluid Intake, Abdominal cramping : reports: No Symptoms Reported Musculoskeletal: reports: Back Pain Integumentary: reports: Dryness, Flushing Neuro: reports: Tremors Endocrine: reports: No Symptoms Reported Hematology: reports: No Symptoms Reported Psychiatric: reports: No Sypmtoms Reported Other Systems: Reviewed and Negative Patient History - Patient Medical History Hx Anemia: Yes (IRON PILL IN THE PAST) Hx Asthma: No Hx Cardiac Disorders: Yes (Heart attack with stent insertion 2015) Hx Hypertension: No Hx Hypercholesterolemia: No HX Cerebrovascular Accident: No Hx Seizures: No Hx Diabetes: No Hx Gastrointestinal Disorders: Yes ( GERD on OMEPRAZOLE) Hx Genitourinary Disorders: Yes (BPH) Hx Sexually Transmitted Disorders: No (DENIES) Hx Renal Disease (ESRD): No Hx Thyroid Disease: No Hx Human Immunodeficiency Virus (HIV): No (NEGATIVE 2018) Hx Hepatitis C: Yes ("I WAS EXPOSED TO IT; NUMBERS WERE LOW-20 YRS AGO") Hx Depression: No Hx Suicide Attempt: No (DENIES SUICIDAL IDEATION AT THIS TIME) Hx Bipolar Disorder: No Hx Schizophrenia: No - Patient Surgical History Past Surgical History: Yes Hx Neurologic Surgery: No Hx Cataract Extraction: No Hx Cardiac Surgery: Yes (stenty placement 2016) Hx Lung Surgery: No Hx Breast Surgery: No Hx Breast Biopsy: No Hx Abdominal Surgery: No Hx Appendectomy: Yes (40 YRS AGO) Hx Cholecystectomy: No Hx Genitourinary Surgery: No Hx Orthopedic Surgery: No Anesthesia Reaction: No - PPD History Previous Implant?: Yes Documented Results: Negative w/proof Implanted On Prior [facility] Admission?: Yes Date: 04/19/18 PPD to be Administered?: Yes - Reproductive History Patient is a Female of Child Bearing Age (11 -55 yrs old): No (MALE) - Smoking Cessation Smoking history: Current every day smoker Have you smoked in the past 12 months: Yes Aproximately how many cigarettes per day: 4 Hx Chewing Tobacco Use: No Initiated information on smoking cessation: Yes 'Breaking Loose' booklet given: 04/01/19 - Substance & Tx. History Hx Alcohol Use: Yes Hx Substance Use: Yes Substance Use Type: Alcohol, Cocaine, Heroin, Marijuana, Opiates Hx Substance Use Treatment: Yes ([facility]) - Substances abused Alprazolam (Xanax) Other (specify): 2mg Substance route: Oral Frequency: Daily Amount used: 2 pills Age of first use: 44 Date of last use: 04/01/19 Benzodiazepine (Klonopin) Other (specify): 1mg Substance route: Oral Frequency: Daily Amount used: 4 pills Age of first use: 43 Date of last use: 04/01/19 Alcohol Substance route: Oral Frequency: Daily Amount used: 1/2 pint of vodka Age of first use: 12 Date of last use: 03/31/19 Crack Substance route: Smoking Frequency: Daily Amount used: $30-50 Age of first use: 18 Date of last use: 04/01/19 Admission Physical Exam [facility] - Vital Signs Vital Signs: Vital Signs - 24 hr 04/01/19 13:32 Temperature 96.6 F L Pulse Rate 55 L Respiratory 18 Rate Blood Pressure 130/68 - Physical General Appearance: Yes: Moderate Distress, Tremorous, Irritable, Anxious HEENTM: Yes: Within Normal Limits Respiratory: Yes: Lungs Clear, Normal Breath Sounds, No Respiratory Distress Neck: Yes: Supple Breast: Yes: Breast Exam Deferred Cardiology: Yes: Regular Rhythm, Regular Rate Abdominal: Yes: Normal Bowel Sounds, Soft Genitourinary: Yes: Within Normal Limits Back: Yes: Normal Inspection Extremities: Yes: Tremors Neurological: Yes: Within Normal Limits Integumentary: Yes: Warm Lymphatic: Yes: Within Normal Limits - Diagnostic (1) Opioid dependence with withdrawal Current Visit: Yes Status: Acute (2) Hep C w/o coma, chronic Current Visit: Yes Status: Chronic (3) Alcohol dependence with uncomplicated withdrawal Current Visit: Yes Status: Acute (4) Sedative, hypnotic or anxiolytic dependence with withdrawal, uncomplicated Current Visit: No Status: Acute (5) GERD (gastroesophageal reflux disease) Current Visit: Yes Status: Chronic Qualifiers: Esophagitis presence: esophagitis presence not specified Qualified Code(s) : K21.9 - Gastro-esophageal reflux disease without esophagitis (6) History of anemia Current Visit: Yes Status: Chronic Cleared for Admission S - Detox or Rehab [facility] Level of Care: Medically Managed Detox Regimen/Protocol: Valium Claeared for Rehab Admission: No Breathalyzer - Breathalyzer Breathalyzer: 0 Urine Drug Screen - Test Device Lot number: [id number] Expiration date: 10/20/20 - Control Is test valid?: Yes - Results Drug screen NEGATIVE: No Urine drug screen results: EMILIE-Cocaine, MOP-Opiates, MTD-Methadone, BZO- Benzodiazepines, BUP-Suboxone Inpatient Rehab Admission - Rehab Decision to Admit Inpatient rehab admission?: No
[2019-04-01] MEDS ORDERED: ACETAMINOPHEN 325 MG TABLET (FP) PO PRN ×2 (20:09)
[2019-04-01] MEDS ORDERED: MAGNESIUM HYDROX 2400MG/30ML ORAL SUSPENSION 30 ML CUP PO PRN (20:09)
[2019-04-01] MEDS ORDERED: METHOCARBAMOL 500 MG TABLET PO PRN (20:09)
[2019-04-01] MEDS ORDERED: hydrOXYzine PAMOATE 25 MG CAPSULE (FP) PO PRN (20:09)
[2019-04-01] MEDS ORDERED: MAGNESIUM CITRATE 300 ML BOTTLE PO PRN (20:09)
[2019-04-01] MEDS ORDERED: MELATONIN 5 MG TABLETS PO PRN (20:09)
[2019-04-01] MEDS ORDERED: NICOTINE POLACRILEX 2 MG GUM BUC PRN (20:09)
[2019-04-01] MEDS ORDERED: MENTHOL/PHENOL 1 EACH UD MM PRN (20:09)
[2019-04-01] MEDS ORDERED: IBUPROFEN 400 MG TABLET (FP) PO PRN (20:09)
[2019-04-01] MEDS ORDERED: MAG HYDROX/AL HYDROX/SIMETH 30 ML UNIT-DOSE CUP PO PRN (20:09)
[2019-04-01] MEDS ORDERED: BISMUTH SUBSALICYLATE 524 MG/30 ML UD PO PRN (20:09)
[2019-04-01] MEDS: THIAMINE HCL 100 MG TABLET (FP) PO SCH (21:25)
[2019-04-01] MEDS: diazePAM 5 MG TABLET PO SCH (23:48)
[2019-04-02] MEDS: diazePAM 5 MG TABLET PO SCH ×3 (06:05→22:16)
[2019-04-02] MEDS ORDERED: METHADONE HCL 10 MG TABLET PO SCH (09:30)
[2019-04-02] MEDS ORDERED: cloNIDine HCL 0.1 MG TABLET PO PRN (09:43)
--- NOTE | 2019-04-02 09:43 | PN ---
[facility] CIWA - CIWA Score Nausea/Vomitin Muscle Tremors: 4-Moderate,w/Arms Extend Anxiety: 4-Mod. Anxious/Guarded Agitation: 1-Slight > Activity Paroxysmal Sweats: 2 Orientation: 0-Oriented Tacttile Disturbances: 1-Very Mild Itch/Numbness Auditory Disturbances: 0-None Visual Disturbances: 0-None Headache: 0-None Present CIWA-Ar Total Score: 14 [facility] Progress Note (SOAP) Subjective: Pt states feeling very anxious, pt on a benzo taper protocol O: Vital Signs - 24 hr 04/01/19 04/01/19 04/02/19 13:32 22:49 00:30 Temperature 96.6 F L 96.7 F L Pulse Rate 55 L 48 L Respiratory 18 18 18 Rate Blood Pressure 130/68 155/74 04/02/19 04/02/19 04/02/19 03:30 06:04 09:19 Temperature 97.4 F L 97.8 F Pulse Rate 58 L 68 Respiratory 18 18 16 Rate Blood Pressure 130/80 108/58 L labs pending a/p: Benzo use disorder: continue detox. d/w pt availability of prn meds to help with Sx
[2019-04-02] MEDS ORDERED: METHADONE HCL 10 MG TABLET ONE (10:19)
[2019-04-02] MEDS ORDERED: METHADONE HCL 40 MG DISPERSABLE TABLET ONE (10:20)
[2019-04-02] MEDS: METHADONE 160 MG, METHADONE 20 MG PO SCH (10:21)
[2019-04-02] MEDS: PRENATAL VITAMINS W/ FOLIC ACID TABLET (FP) PO SCH (10:23)
[2019-04-02] MEDS: ASPIRIN 81 MG CHEWABLE TABLETS PO SCH (10:23)
[2019-04-02] MEDS: PANTOPRAZOLE 20 MG TABLET (FP) PO SCH (10:23)
[2019-04-02] MEDS: diazePAM 5 MG TABLET PO PRN ×2 (10:23→19:45)
[2019-04-02] MEDS: NICOTINE 14 MG/24 HOURS TOPICAL PATCH TD SCH (10:24)
[2019-04-02 10:44] LABS: HEMATOCRIT 32.9 % (35.4-49); HEMOGLOBIN 10.6 GM/dL (11.7-16.9); MCH 26.4 pg (25.7-33.7); MCHC 32.1 g/dl (32.0-35.9); MEAN CELL VOLUME 82.2 fl (80-96); MEAN PLT VOLUME 8.2 fl (7.5-11.1); PLATELET COUNT 243 K/MM3 (134-434); RDW 14.2 % (11.9-15.9); WHITE BLOOD COUNT 4.8 K/mm3 (4.0-10.0)
[2019-04-02 10:58] LABS: BILIRUBIN,TOTAL 0.4 mg/dL (0.2-1); BLOOD UREA NITROGEN 19.8 mg/dL (7-18); CALCIUM 8.8 mg/dL (8.5-10.1); CREATININE 0.9 mg/dL (0.55-1.3); POTASSIUM 4.3 mmol/L (3.5-5.1)
--- NOTE | 2019-04-02 11:38 | EKG ---
Test Reason : Blood Pressure : / mmHG Vent. Rate : 052 BPM Atrial Rate : 052 BPM P-R Int : 208 ms QRS Dur : 090 ms QT Int : 492 ms P-R-T Axes : 042 013 032 degrees QTc Int : 457 ms SINUS BRADYCARDIA INCOMPLETE RBBB WHEN COMPARED WITH ECG OF 17-APR-2018 21:08, NO SIGNIFICANT CHANGE WAS FOUND Confirmed by ANASTASIA MORRISON MD ([id number]) on 04/02/2019 11:38:18 AM Referred By: Confirmed By:ANASTASIA MORRISON MD
[2019-04-02] MEDS: THIAMINE HCL 100 MG TABLET (FP) PO SCH (22:16)
[2019-04-03] MEDS: diazePAM 5 MG TABLET PO PRN ×2 (03:59→22:31)
[2019-04-03] MEDS ORDERED: METHADONE HCL 10 MG TABLET ONE (05:22)
[2019-04-03] MEDS ORDERED: METHADONE HCL 40 MG DISPERSABLE TABLET ONE (05:23)
[2019-04-03] MEDS: METHADONE 160 MG, METHADONE 20 MG PO SCH (06:07)
[2019-04-03] MEDS: diazePAM 5 MG TABLET PO SCH ×2 (06:08→17:19)
[2019-04-03] MEDS: PANTOPRAZOLE 20 MG TABLET (FP) PO SCH (10:12)
[2019-04-03] MEDS: ASPIRIN 81 MG CHEWABLE TABLETS PO SCH (10:12)
[2019-04-03] MEDS: PRENATAL VITAMINS W/ FOLIC ACID TABLET (FP) PO SCH (10:12)
[2019-04-03] MEDS: NICOTINE 14 MG/24 HOURS TOPICAL PATCH TD SCH (10:12)
--- NOTE | 2019-04-03 10:57 | PN ---
[facility] CIWA - CIWA Score Nausea/Vomitin-No Nausea/No Vomiting Muscle Tremors: 2 Anxiety: 3 Agitation: 2 Paroxysmal Sweats: 3 Orientation: 0-Oriented Tacttile Disturbances: 0-None Auditory Disturbances: 0-None Visual Disturbances: 0-None Headache: 2-Mild CIWA-Ar Total Score: 12 S Progress Note (SOAP) Subjective: c/o headache, irritability, anxiety, and sweats. Objective: 04/03/19 10:57 Vital Signs 04/03/19 04/03/19 06:44 09:52 Temperature 97.8 F 97.5 F L Pulse Rate 62 63 Respiratory 18 18 Rate Blood Pressure 125/71 130/72 Laboratory Last Values WBC 4.8 K/mm3 (4.0-10.0) 04/02/19 07:45 RBC 4.00 M/mm3 (4.00-5.60) 04/02/19 07:45 Hgb 10.6 GM/dL (11.7-16.9) L 04/02/19 07:45 Hct 32.9 % (35.4-49) L 04/02/19 07:45 MCV 82.2 fl (80-96) 04/02/19 07:45 MCH 26.4 pg (25.7-33.7) 04/02/19 07:45 MCHC 32.1 g/dl (32.0-35.9) 04/02/19 07:45 RDW 14.2 % (11.9-15.9) 04/02/19 07:45 Plt Count 243 K/MM3 (134-434) 04/02/19 07:45 MPV 8.2 fl (7.5-11.1) 04/02/19 07:45 Sodium 144 mmol/L (136-145) 04/02/19 07:45 Potassium 4.3 mmol/L (3.5-5.1) 04/02/19 07:45 Chloride 107 mmol/L (98-107) 04/02/19 07:45 Carbon Dioxide 33 mmol/L (21-32) H 04/02/19 07:45 Anion Gap 4 MMOL/L (8-16) L 04/02/19 07:45 BUN 19.8 mg/dL (7-18) H 04/02/19 07:45 Creatinine 0.9 mg/dL (0.55-1.3) 04/02/19 07:45 Est GFR (CKD-EPI)AfAm 104.24 04/02/19 07:45 Est GFR (CKD-EPI)NonAf 89.94 04/02/19 07:45 Random Glucose 75 mg/dL (74-106) 04/02/19 07:45 Calcium 8.8 mg/dL (8.5-10.1) 04/02/19 07:45 Total Bilirubin 0.4 mg/dL (0.2-1) 04/02/19 07:45 AST 19 U/L (15-37) 04/02/19 07:45 ALT 18 U/L (13-61) 04/02/19 07:45 Alkaline Phosphatase 72 U/L (45-117) 04/02/19 07:45 Total Protein 6.0 g/dl (6.4-8.2) L 04/02/19 07:45 Albumin 3.0 g/dl (3.4-5.0) L 04/02/19 07:45 RPR Titer Nonreactive (NONREACTIVE) 04/02/19 07:45 Labs noted. Assessment: 04/03/19 10:57 AOX3, in no acute respiratory distress. Full ROM, ambulating in the unit. Withdrawal symptoms. Plan: continue detox.
[2019-04-03] MEDS: THIAMINE HCL 100 MG TABLET (FP) PO SCH (22:31)
[2019-04-04] MEDS ORDERED: METHADONE HCL 40 MG DISPERSABLE TABLET ONE ×2 (04:53→05:16)
[2019-04-04] MEDS ORDERED: METHADONE HCL 10 MG TABLET ONE ×2 (04:53→05:15)
[2019-04-04] MEDS: METHADONE 160 MG, METHADONE 20 MG PO SCH (05:04)
[2019-04-04] MEDS ORDERED: diazePAM 5 MG TABLET PO ONE (06:00)
[2019-04-04] MEDS: PANTOPRAZOLE 20 MG TABLET (FP) PO SCH (09:20)
[2019-04-04] MEDS: PRENATAL VITAMINS W/ FOLIC ACID TABLET (FP) PO SCH (09:20)
[2019-04-04] MEDS: ASPIRIN 81 MG CHEWABLE TABLETS PO SCH (09:20)
[2019-04-04] MEDS: NICOTINE 14 MG/24 HOURS TOPICAL PATCH TD SCH (09:21)
[2019-04-04] MEDS: diazePAM 5 MG TABLET PO PRN ×2 (11:39→17:34)
--- NOTE | 2019-04-04 13:41 | PN ---
S CIWA - CIWA Score Nausea/Vomitin-No Nausea/No Vomiting Muscle Tremors: 2 Anxiety: 1-Mildly Anxious Agitation: 1-Slight > Activity Paroxysmal Sweats: 1-Minimal Palms Moist Orientation: 0-Oriented Tacttile Disturbances: 0-None Auditory Disturbances: 0-None Visual Disturbances: 1-Very Mild Sensitivity Headache: 1-Very Mild CIWA-Ar Total Score: 7 S Progress Note (SOAP) Subjective: 63 years old male admitted on 04/01/19 for alcohol and benzo withdrawal sx management treating wtih valium detox regimen received methadone 180mg po today feeling better less tremor mild anxiety ambulating with walker steady gait patient may return to methadone program for aftercare Objective: 04/04/19 13:43 Vital Signs Temperature 97 F L 04/04/19 13:35 Pulse Rate 64 04/04/19 13:35 Respiratory Rate 16 04/04/19 13:35 Blood Pressure 119/69 04/04/19 13:35 O2 Sat by Pulse Oximetry (%) Laboratory Last Values WBC 4.8 K/mm3 (4.0-10.0) 04/02/19 07:45 RBC 4.00 M/mm3 (4.00-5.60) 04/02/19 07:45 Hgb 10.6 GM/dL (11.7-16.9) L 04/02/19 07:45 Hct 32.9 % (35.4-49) L 04/02/19 07:45 MCV 82.2 fl (80-96) 04/02/19 07:45 MCH 26.4 pg (25.7-33.7) 04/02/19 07:45 MCHC 32.1 g/dl (32.0-35.9) 04/02/19 07:45 RDW 14.2 % (11.9-15.9) 04/02/19 07:45 Plt Count 243 K/MM3 (134-434) 04/02/19 07:45 MPV 8.2 fl (7.5-11.1) 04/02/19 07:45 Sodium 144 mmol/L (136-145) 04/02/19 07:45 Potassium 4.3 mmol/L (3.5-5.1) 04/02/19 07:45 Chloride 107 mmol/L (98-107) 04/02/19 07:45 Carbon Dioxide 33 mmol/L (21-32) H 04/02/19 07:45 Anion Gap 4 MMOL/L (8-16) L 04/02/19 07:45 BUN 19.8 mg/dL (7-18) H 04/02/19 07:45 Creatinine 0.9 mg/dL (0.55-1.3) 04/02/19 07:45 Est GFR (CKD-EPI)AfAm 104.24 04/02/19 07:45 Est GFR (CKD-EPI)NonAf 89.94 04/02/19 07:45 Random Glucose 75 mg/dL (74-106) 04/02/19 07:45 Calcium 8.8 mg/dL (8.5-10.1) 04/02/19 07:45 Total Bilirubin 0.4 mg/dL (0.2-1) 04/02/19 07:45 AST 19 U/L (15-37) 04/02/19 07:45 ALT 18 U/L (13-61) 04/02/19 07:45 Alkaline Phosphatase 72 U/L (45-117) 04/02/19 07:45 Total Protein 6.0 g/dl (6.4-8.2) L 04/02/19 07:45 Albumin 3.0 g/dl (3.4-5.0) L 04/02/19 07:45 RPR Titer Nonreactive (NONREACTIVE) 04/02/19 07:45 lab noted Assessment: 04/04/19 13:43 alcohol and benzo withdrawal Plan: valium regimen
[2019-04-04] MEDS: THIAMINE HCL 100 MG TABLET (FP) PO SCH (22:17)
[2019-04-05] MEDS ORDERED: METHADONE HCL 10 MG TABLET ONE (04:50)
[2019-04-05] MEDS ORDERED: METHADONE HCL 40 MG DISPERSABLE TABLET ONE (04:50)
[2019-04-05] MEDS: METHADONE 160 MG, METHADONE 20 MG PO SCH (05:32)
[2019-04-05 09:20] VITALS: BP 119/69; PULSE 66; TEMP 97
[2019-04-05] MEDS: ASPIRIN 81 MG CHEWABLE TABLETS PO SCH (09:50)
[2019-04-05] MEDS: NICOTINE 14 MG/24 HOURS TOPICAL PATCH TD SCH (09:50)
[2019-04-05] MEDS: PRENATAL VITAMINS W/ FOLIC ACID TABLET (FP) PO SCH (09:50)
[2019-04-05] MEDS: PANTOPRAZOLE 20 MG TABLET (FP) PO SCH (09:53)
--- NOTE | 2019-04-05 10:50 | DS ---
[facility] Detox Discharge Summary Admission Date: 04/01/19 Discharge Date: 04/05/19 - History Present History: Alcohol Dependence, Sedative Dependence Additional Comments: 63 years old male admitted on 04/01/19 for alcohol and benzo withdrawal sx management treated wtih valium detox regimen completed detox regimen tolerated well alert orietned x 3 respiratory clear lung bilaterally on auscultation skin warm and dry abdomen soft obese no rebound tenderness - Physical Exam Results Vital Signs: Vital Signs Temperature 97.0 F L 04/05/19 09:19 Pulse Rate 66 04/05/19 09:19 Respiratory Rate 18 04/05/19 09:19 Blood Pressure 119/69 04/05/19 09:19 O2 Sat by Pulse Oximetry (%) Pertinent Admission Physical Exam Findings: alcohol and benzo withdrawal Laboratory Last Values WBC 4.8 K/mm3 (4.0-10.0) 04/02/19 07:45 RBC 4.00 M/mm3 (4.00-5.60) 04/02/19 07:45 Hgb 10.6 GM/dL (11.7-16.9) L 04/02/19 07:45 Hct 32.9 % (35.4-49) L 04/02/19 07:45 MCV 82.2 fl (80-96) 04/02/19 07:45 MCH 26.4 pg (25.7-33.7) 04/02/19 07:45 MCHC 32.1 g/dl (32.0-35.9) 04/02/19 07:45 RDW 14.2 % (11.9-15.9) 04/02/19 07:45 Plt Count 243 K/MM3 (134-434) 04/02/19 07:45 MPV 8.2 fl (7.5-11.1) 04/02/19 07:45 Sodium 144 mmol/L (136-145) 04/02/19 07:45 Potassium 4.3 mmol/L (3.5-5.1) 04/02/19 07:45 Chloride 107 mmol/L (98-107) 04/02/19 07:45 Carbon Dioxide 33 mmol/L (21-32) H 04/02/19 07:45 Anion Gap 4 MMOL/L (8-16) L 04/02/19 07:45 BUN 19.8 mg/dL (7-18) H 04/02/19 07:45 Creatinine 0.9 mg/dL (0.55-1.3) 04/02/19 07:45 Est GFR (CKD-EPI)AfAm 104.24 04/02/19 07:45 Est GFR (CKD-EPI)NonAf 89.94 04/02/19 07:45 Random Glucose 75 mg/dL (74-106) 04/02/19 07:45 Calcium 8.8 mg/dL (8.5-10.1) 04/02/19 07:45 Total Bilirubin 0.4 mg/dL (0.2-1) 04/02/19 07:45 AST 19 U/L (15-37) 04/02/19 07:45 ALT 18 U/L (13-61) 04/02/19 07:45 Alkaline Phosphatase 72 U/L (45-117) 04/02/19 07:45 Total Protein 6.0 g/dl (6.4-8.2) L 04/02/19 07:45 Albumin 3.0 g/dl (3.4-5.0) L 04/02/19 07:45 RPR Titer Nonreactive (NONREACTIVE) 04/02/19 07:45 lab noted Vital Signs Temperature 97.0 F L 04/05/19 09:19 Pulse Rate 66 04/05/19 09:19 Respiratory Rate 18 04/05/19 09:19 Blood Pressure 119/69 04/05/19 09:19 O2 Sat by Pulse Oximetry (%) - Treatment Hospital Course: Detox Protocol Followed, Detoxed Safely, Responded well, Discharged Condition Good, Rehab Referral Accepted Patient has Accepted [facility] - Medication Discharge Medications: Ambulatory Orders Aspirin 81 mg PO DAILY 04/17/18 Methadone [Dolophine -] 180 mg PO DAILY 04/17/18 Omeprazole 20 mg PO DAILY 04/17/18 - Diagnosis (1) Alcohol dependence with uncomplicated withdrawal Status: Acute (2) Sedative, hypnotic or anxiolytic dependence with withdrawal, uncomplicated Status: Acute (3) Walker as ambulation aid Status: Chronic (4) GERD (gastroesophageal reflux disease) Status: Chronic Qualifiers: Esophagitis presence: esophagitis presence not specified Qualified Code(s) : K21.9 - Gastro-esophageal reflux disease without esophagitis (5) Hep C w/o coma, chronic Status: Chronic - AMA Did Patient Leave Against Medical Advice: No CIWA Score - CIWA Score Nausea/Vomitin-No Nausea/No Vomiting Muscle Tremors: 1-None Visible, but [place] Anxiety: 0-No Anxiety, at Ease Agitation: 0-Normal Activity Paroxysmal Sweats: No Perspiration Orientation: 0-Oriented Tacttile Disturbances: 0-None Auditory Disturbances: 0-None Visual Disturbances: 0-None Headache: 1-Very Mild CIWA-Ar Total Score: 2
== END 2019-04-05 11:55 | disposition other institution (70) | DRG 897 ==
LOC: YASAS 11:41 → Y3N 20:36
PROVIDERS: ADMIT Allergy & Immunology; ATTEND Allergy & Immunology
PROC: HZ2ZZZZ Detoxification Services for Substance Abuse Treatment (ICD-10-PCS; principal; 2019-04-01)
DX: F11.23 Opioid dependence with withdrawal (principal); F10.230 Alcohol dependence with withdrawal, uncomplicated; F13.230 Sedative, hypnotic or anxiolytic dependence with withdrawal, uncomplicated; F17.210 Nicotine dependence, cigarettes, uncomplicated; K21.9 Gastro-esophageal reflux disease without esophagitis; B18.2 Chronic viral hepatitis C; D64.9 Anemia, unspecified; I25.2 Old myocardial infarction; N40.0 Benign prostatic hyperplasia without lower urinary tract symptoms; Z95.5 Presence of coronary angioplasty implant and graft; R26.2 Difficulty in walking, not elsewhere classified; Z99.89 Dependence on other enabling machines and devices
CPT/HCPCS: 36415; 80053; 85027; 86593; 93005; 93010

== ENCOUNTER 2019-04-05 11:58 | Inpatient (IN) | payer MEDICARE, OTHER ==
[2019-04-05] MEDS ORDERED: MAGNESIUM HYDROX 2400MG/30ML ORAL SUSPENSION 30 ML CUP PO PRN (12:00)
[2019-04-05] MEDS ORDERED: NICOTINE POLACRILEX 2 MG GUM BUC PRN (12:00)
[2019-04-05] MEDS ORDERED: ACETAMINOPHEN 325 MG TABLET (FP) PO PRN (12:00)
[2019-04-05] MEDS ORDERED: guaiFENesin 200 MG/10 ML 10 ML UNIT-DOSE CUPS PO PRN (12:00)
[2019-04-05] MEDS ORDERED: MENTHOL/PHENOL 1 EACH UD MM PRN (12:00)
[2019-04-05] MEDS ORDERED: LOPERAMIDE HCL 2 MG CAPSULE PO PRN (12:00)
[2019-04-05] MEDS ORDERED: P-EPHED 60MG/TRIPROLIDI 2.5MG TABLET PO PRN (12:00)
[2019-04-05] MEDS ORDERED: MAGNESIUM CITRATE 300 ML BOTTLE PO PRN (12:00)
--- NOTE | 2019-04-05 12:00 | HP ---
[facility] Rehab Assess/Revision - Admission History Admitted to Rehab from: [facility] Date of Admission to Rehab: 04/05/19 - Findings Detox History & Physical reviewed: Yes Concur with findings: Yes Comments/Additional Findings: transferred from detox to rehab admission as per protocol Inpatient Rehab Admission - Rehab Decision to Admit Inpatient rehab admission?: Yes - Initial Determination Are CD services needed?: Yes Free of communicable disease: Yes Not in need of hospitalization: Yes - Rehab Admission Criteria Previous failed treatment: Yes Poor recovery environment: Yes Comorbidities: Yes Lacks judgement: Yes Patient is meeting Inpatient Rehab admission criteria:: Yes
[2019-04-05] MEDS: MAG HYDROX/AL HYDROX/SIMETH 30 ML UNIT-DOSE CUP PO PRN (16:50)
[2019-04-05] MEDS: THIAMINE HCL 100 MG TABLET (FP) PO SCH (21:30)
[2019-04-05] MEDS: MELATONIN 5 MG TABLETS PO PRN (21:30)
[2019-04-06] MEDS ORDERED: METHADONE HCL 10 MG TABLET ONE (07:30)
[2019-04-06] MEDS ORDERED: METHADONE HCL 40 MG DISPERSABLE TABLET ONE (07:30)
[2019-04-06] MEDS: METHADONE 160 MG, METHADONE 20 MG PO SCH (07:33)
[2019-04-06] MEDS ORDERED: METHADONE HCL 40 MG DISPERSABLE TABLET PO SCH (10:00)
[2019-04-06] MEDS ORDERED: METHADONE 160 MG, METHADONE 20 MG PO SCH (10:00)
[2019-04-06] MEDS: ASPIRIN 81 MG CHEWABLE TABLETS PO SCH (10:09)
[2019-04-06] MEDS: PRENATAL VITAMINS W/ FOLIC ACID TABLET (FP) PO SCH (10:09)
[2019-04-06] MEDS: FAMOTIDINE 20 MG TABLET PO SCH ×2 (10:09→21:12)
[2019-04-06] MEDS: NICOTINE 14 MG/24 HOURS TOPICAL PATCH TD SCH (10:09)
--- NOTE | 2019-04-06 11:06 | PN ---
S Progress Note Note: Pt was admitted to rehab from detox yesterday. Pt has no complaints today. f/u as needed
[2019-04-06] MEDS: THIAMINE HCL 100 MG TABLET (FP) PO SCH (21:12)
[2019-04-06] MEDS: MELATONIN 5 MG TABLETS PO PRN (21:12)
[2019-04-07] MEDS ORDERED: METHADONE HCL 10 MG TABLET ONE (05:26)
[2019-04-07] MEDS ORDERED: METHADONE HCL 40 MG DISPERSABLE TABLET ONE (05:26)
[2019-04-07] MEDS: METHADONE 160 MG, METHADONE 20 MG PO SCH (05:49)
[2019-04-07] MEDS: FAMOTIDINE 20 MG TABLET PO SCH ×2 (09:52→21:21)
[2019-04-07] MEDS: ASPIRIN 81 MG CHEWABLE TABLETS PO SCH (09:52)
[2019-04-07] MEDS: PRENATAL VITAMINS W/ FOLIC ACID TABLET (FP) PO SCH (09:52)
[2019-04-07] MEDS: NICOTINE 14 MG/24 HOURS TOPICAL PATCH TD SCH (09:53)
[2019-04-07] MEDS: MELATONIN 5 MG TABLETS PO PRN (21:21)
[2019-04-07] MEDS: THIAMINE HCL 100 MG TABLET (FP) PO SCH (21:21)
[2019-04-08] MEDS ORDERED: METHADONE HCL 10 MG TABLET ONE (03:59)
[2019-04-08] MEDS ORDERED: METHADONE HCL 40 MG DISPERSABLE TABLET ONE (03:59)
[2019-04-08] MEDS: METHADONE 160 MG, METHADONE 20 MG PO SCH (05:57)
[2019-04-08] MEDS: PRENATAL VITAMINS W/ FOLIC ACID TABLET (FP) PO SCH (09:57)
[2019-04-08] MEDS: NICOTINE 14 MG/24 HOURS TOPICAL PATCH TD SCH (09:57)
[2019-04-08] MEDS: FAMOTIDINE 20 MG TABLET PO SCH ×2 (09:57→21:14)
[2019-04-08] MEDS: ASPIRIN 81 MG CHEWABLE TABLETS PO SCH (09:57)
[2019-04-08] MEDS: THIAMINE HCL 100 MG TABLET (FP) PO SCH (21:14)
[2019-04-08] MEDS: MELATONIN 5 MG TABLETS PO PRN (21:14)
[2019-04-09] MEDS ORDERED: METHADONE HCL 10 MG TABLET ONE (05:34)
[2019-04-09] MEDS ORDERED: METHADONE HCL 40 MG DISPERSABLE TABLET ONE (05:34)
[2019-04-09] MEDS: METHADONE 160 MG, METHADONE 20 MG PO SCH (05:53)
[2019-04-09] MEDS: ASPIRIN 81 MG CHEWABLE TABLETS PO SCH (10:17)
[2019-04-09] MEDS: PRENATAL VITAMINS W/ FOLIC ACID TABLET (FP) PO SCH (10:17)
[2019-04-09] MEDS: NICOTINE 14 MG/24 HOURS TOPICAL PATCH TD SCH (10:17)
[2019-04-09] MEDS: FAMOTIDINE 20 MG TABLET PO SCH ×2 (10:17→21:20)
[2019-04-09] MEDS: HYDROCHLOROTHIAZIDE 12.5 MG CAPSULE (FP) PO SCH (10:55)
--- NOTE | 2019-04-09 11:08 | PN ---
S Progress Note Note: PATIENT C/O SWELLING OF LOWER LEGS AND FEET. PATIENT STATES HIS SYMPTOMS WERE PRESENT PRIOR TO ADMISSION BUT STATES IT IS WORSE NOW. PATIENT IS ON MMTP AND IN REHAB FOR BZO DEPENDENCE. PATIENT DENIES HX OF CHF, HTN AND LIVER DISEASE. Vital Signs Temperature 97.7 F 04/09/19 07:03 Pulse Rate 52 L 04/09/19 07:03 Respiratory Rate 18 04/09/19 07:03 Blood Pressure 145/79 04/09/19 07:03 O2 Sat by Pulse Oximetry (%) PE: ALERT AND ORIENTED X 3 SKIN WARM AND DRY NECK SUPPLE, NO JVD CAR S1S2 RESP CTA BL GI NT, BD EXT AMB WITH WALKER, 2+ BLE PITTING EDEMA, NO REDNESS PRESENT A/P: BLE EDEMA WILL START LOW DOSE DIURETIC HCTZ 12.5MG DAILY X ONE WEEK AND MONITOR RESPONSE AIME STOCKINGS BLE LEG ELEVATION WHILE IN BED
[2019-04-09] MEDS: THIAMINE HCL 100 MG TABLET (FP) PO SCH (21:20)
[2019-04-09] MEDS: MELATONIN 5 MG TABLETS PO PRN (21:20)
[2019-04-10] MEDS ORDERED: METHADONE HCL 10 MG TABLET ONE (05:31)
[2019-04-10] MEDS ORDERED: METHADONE HCL 40 MG DISPERSABLE TABLET ONE (05:32)
[2019-04-10] MEDS: METHADONE 160 MG, METHADONE 20 MG PO SCH (05:47)
[2019-04-10] MEDS: PRENATAL VITAMINS W/ FOLIC ACID TABLET (FP) PO SCH (09:53)
[2019-04-10] MEDS: ASPIRIN 81 MG CHEWABLE TABLETS PO SCH (09:53)
[2019-04-10] MEDS: HYDROCHLOROTHIAZIDE 12.5 MG CAPSULE (FP) PO SCH (09:54)
[2019-04-10] MEDS: FAMOTIDINE 20 MG TABLET PO SCH ×2 (09:54→21:04)
[2019-04-10] MEDS: NICOTINE 14 MG/24 HOURS TOPICAL PATCH TD SCH (09:54)
[2019-04-10] MEDS: THIAMINE HCL 100 MG TABLET (FP) PO SCH (21:04)
[2019-04-11] MEDS ORDERED: METHADONE HCL 40 MG DISPERSABLE TABLET ONE (05:34)
[2019-04-11] MEDS ORDERED: METHADONE HCL 10 MG TABLET ONE (05:34)
[2019-04-11] MEDS: METHADONE 160 MG, METHADONE 20 MG PO SCH (05:52)
[2019-04-11] MEDS: FAMOTIDINE 20 MG TABLET PO SCH ×2 (10:30→21:35)
[2019-04-11] MEDS: ASPIRIN 81 MG CHEWABLE TABLETS PO SCH (10:30)
[2019-04-11] MEDS: PRENATAL VITAMINS W/ FOLIC ACID TABLET (FP) PO SCH (10:30)
[2019-04-11] MEDS: HYDROCHLOROTHIAZIDE 12.5 MG CAPSULE (FP) PO SCH (10:30)
[2019-04-11] MEDS: NICOTINE 14 MG/24 HOURS TOPICAL PATCH TD SCH (10:31)
[2019-04-11] MEDS: THIAMINE HCL 100 MG TABLET (FP) PO SCH (21:35)
[2019-04-12] MEDS ORDERED: METHADONE HCL 40 MG DISPERSABLE TABLET ONE (05:29)
[2019-04-12] MEDS ORDERED: METHADONE HCL 10 MG TABLET ONE (05:29)
[2019-04-12] MEDS: METHADONE 160 MG, METHADONE 20 MG PO SCH (05:53)
[2019-04-12] MEDS: ASPIRIN 81 MG CHEWABLE TABLETS PO SCH (10:05)
[2019-04-12] MEDS: HYDROCHLOROTHIAZIDE 12.5 MG CAPSULE (FP) PO SCH (10:34)
[2019-04-12] MEDS: NICOTINE 14 MG/24 HOURS TOPICAL PATCH TD SCH (10:34)
[2019-04-12] MEDS: PRENATAL VITAMINS W/ FOLIC ACID TABLET (FP) PO SCH (10:34)
[2019-04-12] MEDS: FAMOTIDINE 20 MG TABLET PO SCH ×2 (10:34→21:17)
[2019-04-12] MEDS: MAG HYDROX/AL HYDROX/SIMETH 30 ML UNIT-DOSE CUP PO PRN (19:41)
[2019-04-12] MEDS: THIAMINE HCL 100 MG TABLET (FP) PO SCH (21:17)
[2019-04-13] MEDS ORDERED: METHADONE HCL 10 MG TABLET ONE (05:57)
[2019-04-13] MEDS ORDERED: METHADONE HCL 40 MG DISPERSABLE TABLET ONE (05:57)
[2019-04-13] MEDS ORDERED: METHADONE HCL 40 MG DISPERSABLE TABLET PO SCH (06:00)
[2019-04-13] MEDS: METHADONE 160 MG, METHADONE 20 MG PO SCH (06:02)
[2019-04-13] MEDS: PRENATAL VITAMINS W/ FOLIC ACID TABLET (FP) PO SCH (10:28)
[2019-04-13] MEDS: FAMOTIDINE 20 MG TABLET PO SCH ×2 (10:28→21:25)
[2019-04-13] MEDS: ASPIRIN 81 MG CHEWABLE TABLETS PO SCH (10:28)
[2019-04-13] MEDS: HYDROCHLOROTHIAZIDE 12.5 MG CAPSULE (FP) PO SCH (10:28)
[2019-04-13] MEDS: NICOTINE 14 MG/24 HOURS TOPICAL PATCH TD SCH (10:28)
[2019-04-13] MEDS: THIAMINE HCL 100 MG TABLET (FP) PO SCH (21:25)
[2019-04-14] MEDS ORDERED: METHADONE HCL 40 MG DISPERSABLE TABLET ONE (05:35)
[2019-04-14] MEDS ORDERED: METHADONE HCL 10 MG TABLET ONE (05:35)
[2019-04-14] MEDS: METHADONE 160 MG, METHADONE 20 MG PO SCH (05:53)
[2019-04-14] MEDS: FAMOTIDINE 20 MG TABLET PO SCH ×2 (09:56→21:19)
[2019-04-14] MEDS: HYDROCHLOROTHIAZIDE 12.5 MG CAPSULE (FP) PO SCH (09:56)
[2019-04-14] MEDS: PRENATAL VITAMINS W/ FOLIC ACID TABLET (FP) PO SCH (09:56)
[2019-04-14] MEDS: ASPIRIN 81 MG CHEWABLE TABLETS PO SCH (09:56)
[2019-04-14] MEDS: NICOTINE 14 MG/24 HOURS TOPICAL PATCH TD SCH (09:57)
[2019-04-14] MEDS: THIAMINE HCL 100 MG TABLET (FP) PO SCH (21:19)
[2019-04-15] MEDS ORDERED: METHADONE HCL 10 MG TABLET ONE (05:31)
[2019-04-15] MEDS ORDERED: METHADONE HCL 40 MG DISPERSABLE TABLET ONE (05:31)
[2019-04-15] MEDS: METHADONE 160 MG, METHADONE 20 MG PO SCH (05:49)
[2019-04-15] MEDS: ASPIRIN 81 MG CHEWABLE TABLETS PO SCH (09:55)
[2019-04-15] MEDS: FAMOTIDINE 20 MG TABLET PO SCH ×2 (09:55→21:28)
[2019-04-15] MEDS: HYDROCHLOROTHIAZIDE 12.5 MG CAPSULE (FP) PO SCH (09:55)
[2019-04-15] MEDS: PRENATAL VITAMINS W/ FOLIC ACID TABLET (FP) PO SCH (09:55)
[2019-04-15] MEDS: NICOTINE 14 MG/24 HOURS TOPICAL PATCH TD SCH (09:56)
[2019-04-15] MEDS: THIAMINE HCL 100 MG TABLET (FP) PO SCH (21:28)
[2019-04-16] MEDS ORDERED: METHADONE HCL 10 MG TABLET ONE (05:33)
[2019-04-16] MEDS ORDERED: METHADONE HCL 40 MG DISPERSABLE TABLET ONE (05:33)
[2019-04-16] MEDS: METHADONE 160 MG, METHADONE 20 MG PO SCH (05:51)
[2019-04-16] MEDS: HYDROCHLOROTHIAZIDE 12.5 MG CAPSULE (FP) PO SCH (09:56)
[2019-04-16] MEDS: ASPIRIN 81 MG CHEWABLE TABLETS PO SCH (09:56)
[2019-04-16] MEDS: FAMOTIDINE 20 MG TABLET PO SCH ×2 (09:56→21:25)
[2019-04-16] MEDS: PRENATAL VITAMINS W/ FOLIC ACID TABLET (FP) PO SCH (09:56)
[2019-04-16] MEDS: NICOTINE 14 MG/24 HOURS TOPICAL PATCH TD SCH (09:57)
[2019-04-16] MEDS: THIAMINE HCL 100 MG TABLET (FP) PO SCH (21:25)
[2019-04-17] MEDS ORDERED: METHADONE HCL 10 MG TABLET ONE (03:54)
[2019-04-17] MEDS ORDERED: METHADONE HCL 40 MG DISPERSABLE TABLET ONE (03:54)
[2019-04-17] MEDS: METHADONE 160 MG, METHADONE 20 MG PO SCH (06:07)
[2019-04-17] MEDS: NICOTINE 14 MG/24 HOURS TOPICAL PATCH TD SCH (09:37)
[2019-04-17] MEDS: PRENATAL VITAMINS W/ FOLIC ACID TABLET (FP) PO SCH (09:37)
[2019-04-17] MEDS: ASPIRIN 81 MG CHEWABLE TABLETS PO SCH (09:37)
[2019-04-17] MEDS: FAMOTIDINE 20 MG TABLET PO SCH ×2 (09:37→21:21)
[2019-04-17] MEDS: THIAMINE HCL 100 MG TABLET (FP) PO SCH (21:21)
[2019-04-18] MEDS ORDERED: METHADONE HCL 10 MG TABLET ONE (03:42)
[2019-04-18] MEDS ORDERED: METHADONE HCL 40 MG DISPERSABLE TABLET ONE (03:43)
[2019-04-18] MEDS: METHADONE 160 MG, METHADONE 20 MG PO SCH (05:59)
[2019-04-18] MEDS: ASPIRIN 81 MG CHEWABLE TABLETS PO SCH (09:32)
[2019-04-18] MEDS: NICOTINE 14 MG/24 HOURS TOPICAL PATCH TD SCH (09:32)
[2019-04-18] MEDS: PRENATAL VITAMINS W/ FOLIC ACID TABLET (FP) PO SCH (09:32)
[2019-04-18] MEDS: FAMOTIDINE 20 MG TABLET PO SCH ×2 (09:32→21:24)
[2019-04-18] MEDS: THIAMINE HCL 100 MG TABLET (FP) PO SCH (21:24)
[2019-04-19] MEDS ORDERED: METHADONE HCL 40 MG DISPERSABLE TABLET ONE (04:01)
[2019-04-19] MEDS ORDERED: METHADONE HCL 10 MG TABLET ONE (04:01)
[2019-04-19] MEDS: METHADONE 160 MG, METHADONE 20 MG PO SCH (05:55)
[2019-04-19] MEDS: PRENATAL VITAMINS W/ FOLIC ACID TABLET (FP) PO SCH (10:16)
[2019-04-19] MEDS: ASPIRIN 81 MG CHEWABLE TABLETS PO SCH (10:16)
[2019-04-19] MEDS: NICOTINE 14 MG/24 HOURS TOPICAL PATCH TD SCH (10:16)
[2019-04-19] MEDS: FAMOTIDINE 20 MG TABLET PO SCH ×2 (10:16→21:19)
--- NOTE | 2019-04-19 11:36 | PN ---
[facility] Progress Note Note: Patient is scheduled for discharge tomorrow from rehab for BZO/Alcohol/Opiod dependence. On MMTP at [facility] and aftercare appt arranged for 04/21/2019 at 8am. Patient is medically stable at this time and denies SI/HI. Medically advised to continue group meetings and attendance at MMTP to prevent reoccurrence and to follow up with PCP for management of chronic conditions. Medications sent to preferred pharmacy. Vital Signs Period Temp Pulse Resp BP Sys/Jacob Pulse Ox Last 24 Hr 97.6 F 53-60 18-18 116-145/63-80 Ambulatory Orders Methadone [Dolophine -] 180 mg PO DAILY 04/17/18 Omeprazole 20 mg PO DAILY 04/17/18 Aspirin 81 mg PO DAILY #14 tab.chew 04/19/19 Famotidine [Pepcid -] 20 mg PO BID #30 tablet 04/19/19
[2019-04-19] MEDS: THIAMINE HCL 100 MG TABLET (FP) PO SCH (21:19)
[2019-04-20] MEDS ORDERED: METHADONE HCL 10 MG TABLET ONE (03:55)
[2019-04-20] MEDS ORDERED: METHADONE HCL 40 MG DISPERSABLE TABLET ONE (03:55)
[2019-04-20] MEDS: METHADONE 160 MG, METHADONE 20 MG PO SCH (05:58)
[2019-04-20 06:46] VITALS: BP 158/85; PULSE 55; TEMP 97.8
[2019-04-20] MEDS: FAMOTIDINE 20 MG TABLET PO SCH (09:31)
[2019-04-20] MEDS: PRENATAL VITAMINS W/ FOLIC ACID TABLET (FP) PO SCH (09:31)
[2019-04-20] MEDS: ASPIRIN 81 MG CHEWABLE TABLETS PO SCH (09:31)
[2019-04-20] MEDS: NICOTINE 14 MG/24 HOURS TOPICAL PATCH TD SCH (09:32)
== END 2019-04-20 09:38 | disposition home or self-care (01) | DRG 895 ==
LOC: YASAS 11:58 → Y3W 11:59
PROVIDERS: ADMIT Neuromusculoskeletal Medicine & OMM; ATTEND Neuromusculoskeletal Medicine & OMM
PROC: HZ42ZZZ Group Counseling for Substance Abuse Treatment, Cognitive-Behavioral (ICD-10-PCS; principal; 2019-04-05)
DX: F10.20 Alcohol dependence, uncomplicated (principal); F11.20 Opioid dependence, uncomplicated; F13.20 Sedative, hypnotic or anxiolytic dependence, uncomplicated; R60.0 Localized edema; Z99.89 Dependence on other enabling machines and devices

== ENCOUNTER 2020-05-16 17:48 | Inpatient (IN) | payer MEDICARE, OTHER ==
[2020-05-16 20:12] VITALS: BMI 32.9
[2020-05-16] MEDS ORDERED: ONDANSETRON *ODT* 4 MG TABLET SL PRN (20:20)
[2020-05-16] MEDS ORDERED: ACETAMINOPHEN 325 MG TABLET (FP) PO PRN ×2 (20:20)
[2020-05-16] MEDS ORDERED: MENTHOL/PHENOL 1 EACH UD MM PRN (20:20)
[2020-05-16] MEDS ORDERED: METHOCARBAMOL 500 MG TABLET PO PRN (20:20)
[2020-05-16] MEDS ORDERED: MAGNESIUM CITRATE 300 ML BOTTLE PO PRN (20:20)
[2020-05-16] MEDS ORDERED: NICOTINE POLACRILEX 2 MG GUM BUC PRN (20:20)
[2020-05-16] MEDS ORDERED: IBUPROFEN 400 MG TABLET (FP) PO PRN (20:20)
[2020-05-16] MEDS ORDERED: BISMUTH SUBSALICYLATE 524 MG/30 ML UD PO PRN (20:20)
[2020-05-16] MEDS ORDERED: MELATONIN 5 MG TABLETS PO SCH (22:00)
[2020-05-16] MEDS: diazePAM 5 MG TABLET PO SCH (22:39)
[2020-05-16] MEDS: THIAMINE HCL 100 MG TABLET (FP) PO SCH (22:40)
[2020-05-17] MEDS: diazePAM 5 MG TABLET PO SCH ×5 (05:33→23:40)
[2020-05-17] MEDS ORDERED: METHADONE HCL 10 MG TABLET PO SCH (09:15)
[2020-05-17] MEDS ORDERED: METHADONE 160 MG, METHADONE 10 MG, METHADONE 5 MG PO ONE (09:30)
[2020-05-17] MEDS ORDERED: METHADONE HCL 10 MG TABLET ONE (09:51)
[2020-05-17] MEDS ORDERED: METHADONE HCL 5 MG TABLET ONE (09:52)
[2020-05-17] MEDS ORDERED: METHADONE HCL 40 MG DISPERSABLE TABLET ONE (09:52)
[2020-05-17] MEDS: NICOTINE 14 MG/24 HOURS TOPICAL PATCH TD SCH (10:41)
[2020-05-17] MEDS: PRENATAL VITAMINS W/ FOLIC ACID TABLET (FP) PO SCH (10:41)
[2020-05-17 13:42] LABS: POTASSIUM 4.3 mmol/L (3.5-5.1)
[2020-05-17 13:47] LABS: HEMOGLOBIN 9.8 GM/dL (11.7-16.9); MCH 26.1 pg (25.7-33.7); MCHC 32.7 g/dl (32.0-35.9); MEAN CELL VOLUME 79.9 fl (80-96); MEAN PLT VOLUME 8.1 fl (7.5-11.1); PLATELET COUNT 269 K/MM3 (134-434); RBC 3.76 M/mm3 (4.00-5.60); RDW 14.5 % (11.9-15.9); WHITE BLOOD COUNT 4.1 K/mm3 (4.0-10.0)
[2020-05-17 13:52] LABS: ALBUMIN 3.1 g/dl (3.4-5.0)
[2020-05-17 13:53] LABS: BLOOD UREA NITROGEN 19.6 mg/dL (7-18)
[2020-05-17 13:54] LABS: CALCIUM 8.7 mg/dL (8.5-10.1)
[2020-05-17 13:57] LABS: BILIRUBIN,TOTAL 0.4 mg/dL (0.2-1)
[2020-05-17 13:58] LABS: CREATININE 0.9 mg/dL (0.55-1.3)
[2020-05-17 13:59] LABS: TOT PROT 6.2 g/dl (6.4-8.2)
[2020-05-17] MEDS: diazePAM 5 MG TABLET PO PRN (14:03)
[2020-05-17] MEDS ORDERED: SUVOREXANT 10 MG TABLET PO PRN (22:00)
[2020-05-17] MEDS: FERROUS SO4 325 MG TABLET (FP) PO SCH (23:03)
[2020-05-17] MEDS: THIAMINE HCL 100 MG TABLET (FP) PO SCH (23:04)
[2020-05-18] MEDS ORDERED: METHADONE HCL 40 MG DISPERSABLE TABLET ONE (04:45)
[2020-05-18] MEDS ORDERED: METHADONE HCL 10 MG TABLET ONE (04:45)
[2020-05-18] MEDS ORDERED: METHADONE HCL 5 MG TABLET ONE (04:46)
[2020-05-18] MEDS: diazePAM 5 MG TABLET PO SCH ×3 (06:01→22:21)
[2020-05-18] MEDS: METHADONE 160 MG, METHADONE 10 MG, METHADONE 5 MG PO SCH (06:02)
[2020-05-18] MEDS: FERROUS SO4 325 MG TABLET (FP) PO SCH ×2 (10:00→22:22)
[2020-05-18] MEDS: NICOTINE 14 MG/24 HOURS TOPICAL PATCH TD SCH (10:01)
[2020-05-18] MEDS: PRENATAL VITAMINS W/ FOLIC ACID TABLET (FP) PO SCH (10:01)
[2020-05-18] MEDS: diazePAM 5 MG TABLET PO PRN ×2 (10:03→17:22)
[2020-05-18] MEDS: MAG HYDROX/AL HYDROX/SIMETH 30 ML UNIT-DOSE CUP PO PRN (10:48)
[2020-05-18 11:18] LABS: POTASSIUM 4.1 mmol/L (3.5-5.1)
[2020-05-18 11:28] LABS: HEMATOCRIT 31.9 % (35.4-49); HEMOGLOBIN 10.4 GM/dL (11.7-16.9); MCHC 32.6 g/dl (32.0-35.9); MEAN CELL VOLUME 79.7 fl (80-96); MEAN PLT VOLUME 8.2 fl (7.5-11.1); PLATELET COUNT 279 K/MM3 (134-434); RDW 14.6 % (11.9-15.9); WHITE BLOOD COUNT 4.4 K/mm3 (4.0-10.0)
[2020-05-18 11:30] LABS: ALBUMIN 3.2 g/dl (3.4-5.0); BLOOD UREA NITROGEN 21.4 mg/dL (7-18); CALCIUM 8.7 mg/dL (8.5-10.1)
[2020-05-18 11:34] LABS: CREATININE 0.9 mg/dL (0.55-1.3)
[2020-05-18 11:35] LABS: BILIRUBIN,TOTAL 0.3 mg/dL (0.2-1); TOT PROT 6.9 g/dl (6.4-8.2)
[2020-05-18] MEDS: MAGNESIUM HYDROX 2400MG/30ML ORAL SUSPENSION 30 ML CUP PO PRN (14:31)
[2020-05-18] MEDS: THIAMINE HCL 100 MG TABLET (FP) PO SCH (22:21)
[2020-05-19] MEDS ORDERED: METHADONE HCL 5 MG TABLET ONE (03:20)
[2020-05-19] MEDS ORDERED: METHADONE HCL 10 MG TABLET ONE (03:20)
[2020-05-19] MEDS ORDERED: METHADONE HCL 40 MG DISPERSABLE TABLET ONE (03:20)
[2020-05-19] MEDS: diazePAM 5 MG TABLET PO SCH ×2 (05:21→17:39)
[2020-05-19] MEDS: METHADONE 160 MG, METHADONE 10 MG, METHADONE 5 MG PO SCH (05:21)
[2020-05-19] MEDS: MAGNESIUM HYDROX 2400MG/30ML ORAL SUSPENSION 30 ML CUP PO PRN ×2 (05:23→10:21)
[2020-05-19] MEDS: MAG HYDROX/AL HYDROX/SIMETH 30 ML UNIT-DOSE CUP PO PRN (06:47)
[2020-05-19] MEDS: FERROUS SO4 325 MG TABLET (FP) PO SCH ×2 (10:18→22:18)
[2020-05-19] MEDS: PANTOPRAZOLE 20 MG TABLET PO SCH (10:18)
[2020-05-19] MEDS: ASPIRIN 81 MG CHEWABLE TABLETS PO SCH (10:18)
[2020-05-19] MEDS: PRENATAL VITAMINS W/ FOLIC ACID TABLET (FP) PO SCH (10:18)
[2020-05-19] MEDS: NICOTINE 14 MG/24 HOURS TOPICAL PATCH TD SCH (10:19)
[2020-05-19] MEDS: diazePAM 5 MG TABLET PO PRN (10:20)
[2020-05-19 11:51] LABS: BASO % 0.9 % (0-2.0); EOS % 4.3 % (0-4.5); HEMATOCRIT 31.9 % (35.4-49); HEMOGLOBIN 10.4 GM/dL (11.7-16.9); LYMPH % 32.8 % (8-40); MCHC 32.6 g/dl (32.0-35.9); MEAN CELL VOLUME 79.6 fl (80-96); MEAN PLT VOLUME 7.9 fl (7.5-11.1); MONO % 10.5 % (3.8-10.2); NEUT % 51.5 % (42.8-82.8); PLATELET COUNT 293 K/MM3 (134-434); RBC 4.01 M/mm3 (4.00-5.60); RDW 14.3 % (11.9-15.9); WHITE BLOOD COUNT 4.6 K/mm3 (4.0-10.0)
[2020-05-19 12:03] LABS: POTASSIUM 4.3 mmol/L (3.5-5.1)
[2020-05-19 12:43] LABS: BLOOD UREA NITROGEN 20.5 mg/dL (7-18)
[2020-05-19 12:46] LABS: CALCIUM 8.6 mg/dL (8.5-10.1)
[2020-05-19 12:48] LABS: CREATININE 1.1 mg/dL (0.55-1.3)
[2020-05-19] MEDS: THIAMINE HCL 100 MG TABLET (FP) PO SCH (22:18)
[2020-05-20] MEDS ORDERED: METHADONE HCL 10 MG TABLET ONE (04:13)
[2020-05-20] MEDS ORDERED: METHADONE HCL 40 MG DISPERSABLE TABLET ONE (04:13)
[2020-05-20] MEDS ORDERED: METHADONE HCL 5 MG TABLET ONE (04:13)
[2020-05-20] MEDS: METHADONE 160 MG, METHADONE 10 MG, METHADONE 5 MG PO SCH (05:11)
[2020-05-20] MEDS ORDERED: diazePAM 5 MG TABLET PO ONE (06:00)
[2020-05-20] MEDS: PANTOPRAZOLE 20 MG TABLET PO SCH (10:35)
[2020-05-20] MEDS: ASPIRIN 81 MG CHEWABLE TABLETS PO SCH (10:35)
[2020-05-20] MEDS: FERROUS SO4 325 MG TABLET (FP) PO SCH (10:35)
[2020-05-20] MEDS: NICOTINE 14 MG/24 HOURS TOPICAL PATCH TD SCH (10:35)
[2020-05-20] MEDS: PRENATAL VITAMINS W/ FOLIC ACID TABLET (FP) PO SCH (10:35)
[2020-05-20 13:54] VITALS: BP 97/49; PULSE 57; TEMP 97.9
== END 2020-05-20 15:32 | disposition other institution (70) | DRG 897 ==
LOC: YASAS 17:48 → Y6N 20:43
PROVIDERS: ADMIT Allergy & Immunology; ATTEND Allergy & Immunology
PROC: HZ2ZZZZ Detoxification Services for Substance Abuse Treatment (ICD-10-PCS; principal; 2020-05-16)
DX: F13.230 Sedative, hypnotic or anxiolytic dependence with withdrawal, uncomplicated (principal); F11.20 Opioid dependence, uncomplicated; F14.20 Cocaine dependence, uncomplicated; F19.282 Other psychoactive substance dependence with psychoactive substance-induced sleep disorder; F17.210 Nicotine dependence, cigarettes, uncomplicated; D64.9 Anemia, unspecified; B18.2 Chronic viral hepatitis C; I83.93 Asymptomatic varicose veins of bilateral lower extremities; I25.2 Old myocardial infarction; K21.9 Gastro-esophageal reflux disease without esophagitis; M41.9 Scoliosis, unspecified; N40.0 Benign prostatic hyperplasia without lower urinary tract symptoms; R79.89 Other specified abnormal findings of blood chemistry; Z99.89 Dependence on other enabling machines and devices
CPT/HCPCS: 36415; 80048; 80053; 85025; 85027; 86780; 93005; 93010; C9803; U0003

== ENCOUNTER 2020-05-20 15:37 | Inpatient (IN) | payer MEDICARE, OTHER ==
[~2020-05-20 15:37] MED LIST: ACETAMINOPHEN 325 MG TABLET (FP) PO PRN; LOPERAMIDE HCL 2 MG CAPSULE PO PRN; MAG HYDROX/AL HYDROX/SIMETH 30 ML UNIT-DOSE CUP PO PRN; MAGNESIUM CITRATE 300 ML BOTTLE PO PRN; MAGNESIUM HYDROX 2400MG/30ML ORAL SUSPENSION 30 ML CUP PO PRN; MENTHOL/PHENOL 1 EACH UD MM PRN; NICOTINE POLACRILEX 2 MG GUM BUC PRN; guaiFENesin 200 MG/10 ML 10 ML UNIT-DOSE CUPS PO PRN
[2020-05-20] MEDS: FERROUS SO4 325 MG TABLET (FP) PO SCH (18:40)
[2020-05-20] MEDS: THIAMINE HCL 100 MG TABLET (FP) PO SCH (21:23)
[2020-05-20] MEDS: MELATONIN 5 MG TABLETS PO SCH (21:24)
[2020-05-20] MEDS: SENNOSIDES/DOCUSATE COMBO (SENNA PLUS) TABLET (UD) PO SCH (23:07)
[2020-05-21] MEDS: FERROUS SO4 325 MG TABLET (FP) PO SCH ×2 (07:10→17:45)
[2020-05-21] MEDS ORDERED: METHADONE HCL 10 MG TABLET PO SCH (08:30)
[2020-05-21] MEDS ORDERED: METHADONE HCL 5 MG TABLET ONE (09:09)
[2020-05-21] MEDS ORDERED: METHADONE HCL 10 MG TABLET ONE (09:10)
[2020-05-21] MEDS ORDERED: METHADONE HCL 40 MG DISPERSABLE TABLET ONE (09:10)
[2020-05-21] MEDS: NICOTINE 14 MG/24 HOURS TOPICAL PATCH TD SCH (09:35)
[2020-05-21] MEDS: PRENATAL VITAMINS W/ FOLIC ACID TABLET (FP) PO SCH (09:35)
[2020-05-21] MEDS: PANTOPRAZOLE 20 MG TABLET PO SCH (09:35)
[2020-05-21] MEDS: METHADONE 160 MG, METHADONE 10 MG, METHADONE 5 MG PO SCH (09:35)
[2020-05-21] MEDS: ASPIRIN 81 MG CHEWABLE TABLETS PO SCH (09:35)
[2020-05-21] MEDS: SENNOSIDES/DOCUSATE COMBO (SENNA PLUS) TABLET (UD) PO SCH ×2 (12:39→21:12)
[2020-05-21] MEDS: THIAMINE HCL 100 MG TABLET (FP) PO SCH (21:12)
[2020-05-21] MEDS: MELATONIN 5 MG TABLETS PO SCH (21:12)
[2020-05-21] MEDS ORDERED: SUVOREXANT 10 MG TABLET PO PRN (22:00)
[2020-05-22] MEDS ORDERED: METHADONE HCL 10 MG TABLET ONE (03:18)
[2020-05-22] MEDS ORDERED: METHADONE HCL 5 MG TABLET ONE (03:18)
[2020-05-22] MEDS ORDERED: METHADONE HCL 40 MG DISPERSABLE TABLET ONE (03:18)
[2020-05-22] MEDS: METHADONE 160 MG, METHADONE 10 MG, METHADONE 5 MG PO SCH (06:19)
[2020-05-22] MEDS: FERROUS SO4 325 MG TABLET (FP) PO SCH ×2 (08:41→18:59)
[2020-05-22] MEDS: ASPIRIN 81 MG CHEWABLE TABLETS PO SCH (10:06)
[2020-05-22] MEDS: PANTOPRAZOLE 20 MG TABLET PO SCH (10:06)
[2020-05-22] MEDS: NICOTINE 14 MG/24 HOURS TOPICAL PATCH TD SCH (10:06)
[2020-05-22] MEDS: PRENATAL VITAMINS W/ FOLIC ACID TABLET (FP) PO SCH (10:06)
[2020-05-22] MEDS: SENNOSIDES/DOCUSATE COMBO (SENNA PLUS) TABLET (UD) PO SCH ×2 (10:07→22:18)
[2020-05-22] MEDS: amLODIPine BESYLATE 2.5 MG TABLET (FP) PO SCH (15:57)
[2020-05-22] MEDS: THIAMINE HCL 100 MG TABLET (FP) PO SCH (21:32)
[2020-05-22] MEDS: MELATONIN 5 MG TABLETS PO SCH (21:32)
[2020-05-23] MEDS ORDERED: METHADONE HCL 40 MG DISPERSABLE TABLET ONE (03:59)
[2020-05-23] MEDS ORDERED: METHADONE HCL 10 MG TABLET ONE (03:59)
[2020-05-23] MEDS ORDERED: METHADONE HCL 5 MG TABLET ONE (03:59)
[2020-05-23] MEDS: METHADONE 160 MG, METHADONE 10 MG, METHADONE 5 MG PO SCH (05:55)
[2020-05-23] MEDS: FERROUS SO4 325 MG TABLET (FP) PO SCH ×2 (07:04→17:23)
[2020-05-23] MEDS: SENNOSIDES/DOCUSATE COMBO (SENNA PLUS) TABLET (UD) PO SCH ×2 (10:19→21:32)
[2020-05-23] MEDS: PRENATAL VITAMINS W/ FOLIC ACID TABLET (FP) PO SCH (10:19)
[2020-05-23] MEDS: PANTOPRAZOLE 20 MG TABLET PO SCH (10:19)
[2020-05-23] MEDS: amLODIPine BESYLATE 2.5 MG TABLET (FP) PO SCH (10:19)
[2020-05-23] MEDS: ASPIRIN 81 MG CHEWABLE TABLETS PO SCH (10:19)
[2020-05-23] MEDS: NICOTINE 14 MG/24 HOURS TOPICAL PATCH TD SCH (10:19)
[2020-05-23] MEDS: THIAMINE HCL 100 MG TABLET (FP) PO SCH (21:32)
[2020-05-23] MEDS: MELATONIN 5 MG TABLETS PO SCH (21:33)
[2020-05-24] MEDS ORDERED: METHADONE HCL 5 MG TABLET ONE (03:48)
[2020-05-24] MEDS ORDERED: METHADONE HCL 40 MG DISPERSABLE TABLET ONE (03:49)
[2020-05-24] MEDS ORDERED: METHADONE HCL 10 MG TABLET ONE (03:49)
[2020-05-24] MEDS: METHADONE 160 MG, METHADONE 10 MG, METHADONE 5 MG PO SCH (06:06)
[2020-05-24] MEDS: FERROUS SO4 325 MG TABLET (FP) PO SCH ×2 (07:23→17:44)
[2020-05-24] MEDS: amLODIPine BESYLATE 2.5 MG TABLET (FP) PO SCH ×2 (10:30→10:39)
[2020-05-24] MEDS: NICOTINE 14 MG/24 HOURS TOPICAL PATCH TD SCH (10:39)
[2020-05-24] MEDS: SENNOSIDES/DOCUSATE COMBO (SENNA PLUS) TABLET (UD) PO SCH ×2 (10:39→21:40)
[2020-05-24] MEDS: ASPIRIN 81 MG CHEWABLE TABLETS PO SCH (10:39)
[2020-05-24] MEDS: PANTOPRAZOLE 20 MG TABLET PO SCH (10:39)
[2020-05-24] MEDS: PRENATAL VITAMINS W/ FOLIC ACID TABLET (FP) PO SCH (10:39)
[2020-05-24] MEDS: MELATONIN 5 MG TABLETS PO SCH (21:40)
[2020-05-24] MEDS: THIAMINE HCL 100 MG TABLET (FP) PO SCH (21:40)
[2020-05-24] MEDS ORDERED: SUVOREXANT 10 MG TABLET PO PRN (22:00)
[2020-05-25] MEDS ORDERED: METHADONE HCL 5 MG TABLET ONE (03:22)
[2020-05-25] MEDS ORDERED: METHADONE HCL 10 MG TABLET ONE (03:23)
[2020-05-25] MEDS ORDERED: METHADONE HCL 40 MG DISPERSABLE TABLET ONE (03:23)
[2020-05-25] MEDS: METHADONE 160 MG, METHADONE 10 MG, METHADONE 5 MG PO SCH (06:41)
[2020-05-25] MEDS: FERROUS SO4 325 MG TABLET (FP) PO SCH ×2 (07:15→17:45)
[2020-05-25] MEDS: PANTOPRAZOLE 20 MG TABLET PO SCH (09:45)
[2020-05-25] MEDS: amLODIPine BESYLATE 2.5 MG TABLET (FP) PO SCH (09:45)
[2020-05-25] MEDS: ASPIRIN 81 MG CHEWABLE TABLETS PO SCH (09:45)
[2020-05-25] MEDS: PRENATAL VITAMINS W/ FOLIC ACID TABLET (FP) PO SCH (09:45)
[2020-05-25] MEDS: SENNOSIDES/DOCUSATE COMBO (SENNA PLUS) TABLET (UD) PO SCH ×2 (09:45→21:40)
[2020-05-25] MEDS: NICOTINE 14 MG/24 HOURS TOPICAL PATCH TD SCH (09:45)
[2020-05-25] MEDS: MELATONIN 5 MG TABLETS PO SCH (21:41)
[2020-05-25] MEDS: THIAMINE HCL 100 MG TABLET (FP) PO SCH (21:41)
[2020-05-26] MEDS ORDERED: METHADONE HCL 5 MG TABLET ONE (05:55)
[2020-05-26] MEDS ORDERED: METHADONE HCL 10 MG TABLET ONE (05:55)
[2020-05-26] MEDS ORDERED: METHADONE HCL 40 MG DISPERSABLE TABLET ONE (05:56)
[2020-05-26] MEDS: METHADONE 160 MG, METHADONE 10 MG, METHADONE 5 MG PO SCH (05:56)
[2020-05-26] MEDS: FERROUS SO4 325 MG TABLET (FP) PO SCH (07:14)
[2020-05-26] MEDS: ASPIRIN 81 MG CHEWABLE TABLETS PO SCH (10:28)
[2020-05-26] MEDS: PANTOPRAZOLE 20 MG TABLET PO SCH (10:28)
[2020-05-26] MEDS: PRENATAL VITAMINS W/ FOLIC ACID TABLET (FP) PO SCH (10:28)
[2020-05-26] MEDS: SENNOSIDES/DOCUSATE COMBO (SENNA PLUS) TABLET (UD) PO SCH ×2 (10:29→21:48)
[2020-05-26] MEDS: NICOTINE 14 MG/24 HOURS TOPICAL PATCH TD SCH (10:30)
[2020-05-26] MEDS: amLODIPine BESYLATE 2.5 MG TABLET (FP) PO SCH (10:30)
[2020-05-26 11:34] LABS: BASO % 2.3 % (0-2.0); EOS % 3.5 % (0-4.5); HEMATOCRIT 32.8 % (35.4-49); HEMOGLOBIN 10.9 GM/dL (11.7-16.9); LYMPH % 28.6 % (8-40); MCHC 33.2 g/dl (32.0-35.9); MEAN CELL VOLUME 78.3 fl (80-96); MEAN PLT VOLUME 8.1 fl (7.5-11.1); NEUT % 55.6 % (42.8-82.8); PLATELET COUNT 278 K/MM3 (134-434); RBC 4.18 M/mm3 (4.00-5.60); RDW 14.5 % (11.9-15.9); WHITE BLOOD COUNT 5.8 K/mm3 (4.0-10.0)
[2020-05-26] MEDS: MELATONIN 5 MG TABLETS PO SCH (21:46)
[2020-05-26] MEDS: THIAMINE HCL 100 MG TABLET (FP) PO SCH (21:46)
[2020-05-26] MEDS ORDERED: PT OWN MED DRAWER 7, Y5N ONE (21:47)
[2020-05-27] MEDS ORDERED: METHADONE HCL 5 MG TABLET ONE (04:10)
[2020-05-27] MEDS ORDERED: METHADONE HCL 40 MG DISPERSABLE TABLET ONE (04:11)
[2020-05-27] MEDS ORDERED: METHADONE HCL 10 MG TABLET ONE (04:11)
[2020-05-27] MEDS: METHADONE 160 MG, METHADONE 10 MG, METHADONE 5 MG PO SCH (05:25)
[2020-05-27] MEDS ORDERED: PT OWN MED DRAWER 7, Y5N ONE (09:30)
[2020-05-27] MEDS: ASPIRIN 81 MG CHEWABLE TABLETS PO SCH (10:34)
[2020-05-27] MEDS: amLODIPine BESYLATE 2.5 MG TABLET (FP) PO SCH (10:35)
[2020-05-27] MEDS: PRENATAL VITAMINS W/ FOLIC ACID TABLET (FP) PO SCH (10:35)
[2020-05-27] MEDS: PANTOPRAZOLE 20 MG TABLET PO SCH (10:35)
[2020-05-27] MEDS: SENNOSIDES/DOCUSATE COMBO (SENNA PLUS) TABLET (UD) PO SCH (10:35)
[2020-05-27] MEDS: NICOTINE 14 MG/24 HOURS TOPICAL PATCH TD SCH (10:35)
[2020-05-27] MEDS: MELATONIN 5 MG TABLETS PO SCH (21:52)
[2020-05-27] MEDS: THIAMINE HCL 100 MG TABLET (FP) PO SCH (21:52)
[2020-05-28] MEDS ORDERED: METHADONE HCL 5 MG TABLET ONE (06:04)
[2020-05-28] MEDS ORDERED: METHADONE HCL 40 MG DISPERSABLE TABLET ONE (06:05)
[2020-05-28] MEDS ORDERED: METHADONE HCL 10 MG TABLET ONE (06:05)
[2020-05-28] MEDS: METHADONE 160 MG, METHADONE 10 MG, METHADONE 5 MG PO SCH (06:06)
[2020-05-28] MEDS: PRENATAL VITAMINS W/ FOLIC ACID TABLET (FP) PO SCH (10:24)
[2020-05-28] MEDS: ASPIRIN 81 MG CHEWABLE TABLETS PO SCH (10:24)
[2020-05-28] MEDS: amLODIPine BESYLATE 2.5 MG TABLET (FP) PO SCH (10:24)
[2020-05-28] MEDS: PANTOPRAZOLE 20 MG TABLET PO SCH (10:24)
[2020-05-28] MEDS: NICOTINE 14 MG/24 HOURS TOPICAL PATCH TD SCH (10:25)
[2020-05-28] MEDS: THIAMINE HCL 100 MG TABLET (FP) PO SCH (21:35)
[2020-05-28] MEDS: MELATONIN 5 MG TABLETS PO SCH (21:35)
[2020-05-29] MEDS ORDERED: METHADONE HCL 10 MG TABLET ONE (06:56)
[2020-05-29] MEDS ORDERED: METHADONE HCL 5 MG TABLET ONE (06:56)
[2020-05-29] MEDS ORDERED: METHADONE HCL 40 MG DISPERSABLE TABLET ONE (06:57)
[2020-05-29] MEDS: METHADONE 160 MG, METHADONE 10 MG, METHADONE 5 MG PO SCH (07:00)
[2020-05-29] MEDS ORDERED: METHADONE HCL 10 MG TABLET PO SCH (07:00)
[2020-05-29] MEDS: PRENATAL VITAMINS W/ FOLIC ACID TABLET (FP) PO SCH (10:12)
[2020-05-29] MEDS: amLODIPine BESYLATE 2.5 MG TABLET (FP) PO SCH (10:12)
[2020-05-29] MEDS: NICOTINE 14 MG/24 HOURS TOPICAL PATCH TD SCH (10:13)
[2020-05-29] MEDS: ASPIRIN 81 MG CHEWABLE TABLETS PO SCH (10:13)
[2020-05-29] MEDS: PANTOPRAZOLE 20 MG TABLET PO SCH (10:13)
[2020-05-29] MEDS: THIAMINE HCL 100 MG TABLET (FP) PO SCH (21:47)
[2020-05-29] MEDS: MELATONIN 5 MG TABLETS PO SCH (21:48)
[2020-05-30] MEDS ORDERED: METHADONE HCL 5 MG TABLET ONE (03:45)
[2020-05-30] MEDS ORDERED: METHADONE HCL 10 MG TABLET ONE (03:46)
[2020-05-30] MEDS ORDERED: METHADONE HCL 40 MG DISPERSABLE TABLET ONE (03:46)
[2020-05-30 05:54] VITALS: TEMP 97.3
[2020-05-30] MEDS: METHADONE 160 MG, METHADONE 10 MG, METHADONE 5 MG PO SCH (06:10)
[2020-05-30] MEDS ORDERED: PT OWN MED DRAWER 7, Y5N ONE (08:47)
[2020-05-30] MEDS: PRENATAL VITAMINS W/ FOLIC ACID TABLET (FP) PO SCH (10:07)
[2020-05-30] MEDS: amLODIPine BESYLATE 2.5 MG TABLET (FP) PO SCH (10:07)
[2020-05-30] MEDS: PANTOPRAZOLE 20 MG TABLET PO SCH (10:07)
[2020-05-30] MEDS: ASPIRIN 81 MG CHEWABLE TABLETS PO SCH (10:08)
[2020-05-30] MEDS: NICOTINE 14 MG/24 HOURS TOPICAL PATCH TD SCH (10:08)
[2020-05-30] MEDS: MELATONIN 5 MG TABLETS PO SCH (22:25)
[2020-05-30] MEDS: THIAMINE HCL 100 MG TABLET (FP) PO SCH (22:26)
[2020-05-31] MEDS ORDERED: METHADONE HCL 10 MG TABLET ONE (05:39)
[2020-05-31] MEDS ORDERED: METHADONE HCL 5 MG TABLET ONE (05:39)
[2020-05-31] MEDS ORDERED: METHADONE HCL 40 MG DISPERSABLE TABLET ONE (05:39)
[2020-05-31] MEDS: METHADONE 160 MG, METHADONE 10 MG, METHADONE 5 MG PO SCH (06:00)
[2020-05-31] MEDS: ASPIRIN 81 MG CHEWABLE TABLETS PO SCH (09:48)
[2020-05-31] MEDS: PANTOPRAZOLE 20 MG TABLET PO SCH (09:48)
[2020-05-31] MEDS: PRENATAL VITAMINS W/ FOLIC ACID TABLET (FP) PO SCH (09:48)
[2020-05-31] MEDS: amLODIPine BESYLATE 2.5 MG TABLET (FP) PO SCH (09:50)
[2020-05-31] MEDS: NICOTINE 14 MG/24 HOURS TOPICAL PATCH TD SCH (09:52)
[2020-05-31 11:17] VITALS: BP 131/71; PULSE 65
== END 2020-05-31 10:20 | disposition home or self-care (01) | DRG 895 ==
LOC: YASAS 15:37 → Y5N 15:38
PROVIDERS: ADMIT Allergy & Immunology; ATTEND Allergy & Immunology
PROC: HZ42ZZZ Group Counseling for Substance Abuse Treatment, Cognitive-Behavioral (ICD-10-PCS; principal; 2020-05-20)
DX: F10.20 Alcohol dependence, uncomplicated (principal); F13.20 Sedative, hypnotic or anxiolytic dependence, uncomplicated; F11.20 Opioid dependence, uncomplicated; F19.282 Other psychoactive substance dependence with psychoactive substance-induced sleep disorder; G40.509 Epileptic seizures related to external causes, not intractable, without status epilepticus; F17.210 Nicotine dependence, cigarettes, uncomplicated; F41.9 Anxiety disorder, unspecified; F32.9 Major depressive disorder, single episode, unspecified; D64.9 Anemia, unspecified; I25.2 Old myocardial infarction; K21.9 Gastro-esophageal reflux disease without esophagitis; M41.9 Scoliosis, unspecified; N40.0 Benign prostatic hyperplasia without lower urinary tract symptoms; B18.2 Chronic viral hepatitis C; Z99.89 Dependence on other enabling machines and devices; Z90.49 Acquired absence of other specified parts of digestive tract
CPT/HCPCS: 36415; 85025; C9803; U0003

== ENCOUNTER 2021-01-30 15:35 | Inpatient (IN) | payer MEDICARE, OTHER ==
[2021-01-30] MEDS ORDERED: ACETAMINOPHEN 325 MG TABLET (FP) PO PRN (18:46)
[2021-01-30] MEDS ORDERED: NICOTINE 10 MG CARTRIDGE (INHALER) IH PRN (18:46)
[2021-01-30] MEDS ORDERED: MENTHOL/PHENOL 1 EACH UD MM PRN (18:46)
[2021-01-30] MEDS ORDERED: MAGNESIUM CITRATE 300 ML BOTTLE PO PRN (18:46)
[2021-01-30] MEDS ORDERED: MAG HYDROX/AL HYDROX/SIMETH 30 ML UNIT-DOSE CUP PO PRN (18:46)
[2021-01-30] MEDS ORDERED: BISMUTH SUBSALICYLATE 524 MG/30 ML PO PRN (18:46)
[2021-01-30 19:17] VITALS: BMI 26.6
[2021-01-30] MEDS: THIAMINE HCL 100 MG TABLET (FP) PO SCH ×2 (21:58→22:02)
[2021-01-30] MEDS: ATORVASTATIN CA 40 MG TABLET (FP) PO SCH (21:58)
[2021-01-30] MEDS: TICAGRELOR 90 MG TABLET PO SCH (21:58)
[2021-01-30] MEDS: MELATONIN 5 MG TABLETS PO SCH (21:59)
[2021-01-31] MEDS ORDERED: methaDONE HCL 10 MG TABLET PO ONE (09:22)
[2021-01-31] MEDS: PRENATAL VITAMINS W/ FOLIC ACID TABLET (FP) PO SCH (09:31)
[2021-01-31] MEDS: TICAGRELOR 90 MG TABLET PO SCH ×2 (09:31→21:36)
[2021-01-31] MEDS: ASPIRIN COATED 81 MG TABLET.EC PO SCH (09:31)
[2021-01-31 09:39] LABS: HEMATOCRIT 28.6 % (35.4-49); HEMOGLOBIN 9.3 GM/dL (11.7-16.9); MCH 25.6 pg (25.7-33.7); MCHC 32.6 g/dl (32.0-35.9); MEAN CELL VOLUME 78.5 fl (80-96); MEAN PLT VOLUME 8.3 fl (7.5-11.1); PLATELET COUNT 172 10^3/uL (134-434); RBC 3.65 M/mm3 (4.00-5.60); RDW 16.8 % (11.9-15.9); WHITE BLOOD COUNT 6.4 K/mm3 (4.0-10.0)
[2021-01-31] MEDS ORDERED: methaDONE HCL 10 MG TABLET ONE (09:45)
[2021-01-31] MEDS ORDERED: methaDONE HCL 40 MG DISPERSABLE TABLET ONE (09:45)
[2021-01-31 09:48] LABS: CALCIUM 8.7 mg/dL (8.5-10.1)
[2021-01-31 09:49] LABS: ALBUMIN 2.7 g/dl (3.4-5.0); BLOOD UREA NITROGEN 35.6 mg/dL (7-18)
[2021-01-31 09:52] LABS: CREATININE 1.4 mg/dL (0.55-1.3)
[2021-01-31 09:54] LABS: BILIRUBIN,TOTAL 0.3 mg/dL (0.2-1); TOT PROT 6.1 g/dl (6.4-8.2)
[2021-01-31] MEDS: ATORVASTATIN CA 40 MG TABLET (FP) PO SCH (21:36)
[2021-01-31] MEDS: MELATONIN 5 MG TABLETS PO SCH (21:36)
[2021-01-31] MEDS: THIAMINE HCL 100 MG TABLET (FP) PO SCH (21:36)
[2021-02-01] MEDS ORDERED: methaDONE HCL 10 MG TABLET ONE (04:12)
[2021-02-01] MEDS ORDERED: methaDONE HCL 40 MG DISPERSABLE TABLET ONE (04:12)
[2021-02-01] MEDS ORDERED: methaDONE HCL 10 MG TABLET PO SCH (06:00)
[2021-02-01] MEDS: ASPIRIN COATED 81 MG TABLET.EC PO SCH (09:57)
[2021-02-01] MEDS: PRENATAL VITAMINS W/ FOLIC ACID TABLET (FP) PO SCH (09:58)
[2021-02-01] MEDS: TICAGRELOR 90 MG TABLET PO SCH ×2 (09:58→21:10)
[2021-02-01] MEDS: FERROUS SO4 325 MG TABLET (FP) PO SCH (16:33)
[2021-02-01] MEDS: MELATONIN 5 MG TABLETS PO SCH (21:09)
[2021-02-01] MEDS: ATORVASTATIN CA 40 MG TABLET (FP) PO SCH (21:10)
[2021-02-01] MEDS: THIAMINE HCL 100 MG TABLET (FP) PO SCH (21:11)
[2021-02-01] MEDS ORDERED: PT OWN MED DRAWER 7, Y5N ONE (21:11)
[2021-02-02] MEDS ORDERED: methaDONE HCL 40 MG DISPERSABLE TABLET ONE (04:17)
[2021-02-02] MEDS ORDERED: methaDONE HCL 10 MG TABLET ONE (04:17)
[2021-02-02] MEDS: FERROUS SO4 325 MG TABLET (FP) PO SCH ×2 (08:07→17:38)
[2021-02-02] MEDS ORDERED: PT OWN MED DRAWER 7, Y5N ONE ×2 (08:44→21:19)
[2021-02-02] MEDS: TICAGRELOR 90 MG TABLET PO SCH ×2 (09:37→21:19)
[2021-02-02] MEDS: PRENATAL VITAMINS W/ FOLIC ACID TABLET (FP) PO SCH (09:37)
[2021-02-02] MEDS: ASPIRIN COATED 81 MG TABLET.EC PO SCH (09:37)
[2021-02-02] MEDS: MAGNESIUM HYDROX 2400MG/30ML ORAL SUSPENSION 30 ML CUP PO PRN (15:50)
[2021-02-02] MEDS: ATORVASTATIN CA 40 MG TABLET (FP) PO SCH (21:17)
[2021-02-02] MEDS: MELATONIN 5 MG TABLETS PO SCH (21:17)
[2021-02-02] MEDS: THIAMINE HCL 100 MG TABLET (FP) PO SCH (21:20)
[2021-02-03] MEDS ORDERED: methaDONE HCL 10 MG TABLET PO ONE (06:00)
[2021-02-03] MEDS ORDERED: methaDONE HCL 40 MG DISPERSABLE TABLET ONE (06:09)
[2021-02-03] MEDS ORDERED: methaDONE HCL 10 MG TABLET ONE (06:09)
[2021-02-03] MEDS: FERROUS SO4 325 MG TABLET (FP) PO SCH ×2 (07:04→17:39)
[2021-02-03] MEDS: PRENATAL VITAMINS W/ FOLIC ACID TABLET (FP) PO SCH (09:13)
[2021-02-03] MEDS: ASPIRIN COATED 81 MG TABLET.EC PO SCH (09:13)
[2021-02-03] MEDS: TICAGRELOR 90 MG TABLET PO SCH ×2 (09:13→21:15)
[2021-02-03] MEDS: PANTOPRAZOLE 20 MG TABLET PO SCH (11:00)
[2021-02-03] MEDS ORDERED: PT OWN MED DRAWER 7, Y5N ONE (19:32)
[2021-02-03] MEDS: THIAMINE HCL 100 MG TABLET (FP) PO SCH (21:15)
[2021-02-03] MEDS: MELATONIN 5 MG TABLETS PO SCH (21:15)
[2021-02-03] MEDS: ATORVASTATIN CA 40 MG TABLET (FP) PO SCH (21:46)
[2021-02-04] MEDS ORDERED: methaDONE HCL 10 MG TABLET ONE (05:39)
[2021-02-04] MEDS ORDERED: methaDONE HCL 40 MG DISPERSABLE TABLET ONE (05:40)
[2021-02-04] MEDS ORDERED: methaDONE HCL 10 MG TABLET PO ONE (06:00)
[2021-02-04] MEDS: ASPIRIN COATED 81 MG TABLET.EC PO SCH (10:06)
[2021-02-04] MEDS: PANTOPRAZOLE 20 MG TABLET PO SCH (10:06)
[2021-02-04] MEDS: PRENATAL VITAMINS W/ FOLIC ACID TABLET (FP) PO SCH (10:06)
[2021-02-04] MEDS: TICAGRELOR 90 MG TABLET PO SCH ×2 (10:06→21:22)
[2021-02-04] MEDS: FERROUS SO4 325 MG TABLET (FP) PO SCH ×2 (10:06→16:47)
[2021-02-04] MEDS ORDERED: PT OWN MED DRAWER 7, Y5N ONE ×2 (16:46→20:40)
[2021-02-04] MEDS: ATORVASTATIN CA 40 MG TABLET (FP) PO SCH (21:22)
[2021-02-04] MEDS: MELATONIN 5 MG TABLETS PO SCH (21:23)
[2021-02-04] MEDS: THIAMINE HCL 100 MG TABLET (FP) PO SCH (21:23)
[2021-02-05] MEDS ORDERED: methaDONE HCL 40 MG DISPERSABLE TABLET ONE (04:21)
[2021-02-05] MEDS ORDERED: methaDONE HCL 10 MG TABLET PO ONE (06:00)
[2021-02-05] MEDS: FERROUS SO4 325 MG TABLET (FP) PO SCH ×2 (07:56→17:38)
[2021-02-05] MEDS ORDERED: PT OWN MED DRAWER 7, Y5N ONE ×2 (08:55→19:46)
[2021-02-05] MEDS: TICAGRELOR 90 MG TABLET PO SCH ×2 (09:03→21:32)
[2021-02-05] MEDS: PRENATAL VITAMINS W/ FOLIC ACID TABLET (FP) PO SCH (09:03)
[2021-02-05] MEDS: ASPIRIN COATED 81 MG TABLET.EC PO SCH (09:03)
[2021-02-05] MEDS: PANTOPRAZOLE 20 MG TABLET PO SCH (09:03)
[2021-02-05] MEDS: MELATONIN 5 MG TABLETS PO SCH (21:17)
[2021-02-05] MEDS: ATORVASTATIN CA 40 MG TABLET (FP) PO SCH (21:32)
[2021-02-05] MEDS: THIAMINE HCL 100 MG TABLET (FP) PO SCH (21:34)
[2021-02-06] MEDS ORDERED: methaDONE HCL 40 MG DISPERSABLE TABLET PO ONE (06:00)
[2021-02-06] MEDS ORDERED: methaDONE HCL 10 MG TABLET PO ONE (06:00)
[2021-02-06] MEDS: methaDONE HCL 40 MG DISPERSABLE TABLET PO SCH (06:25)
[2021-02-06] MEDS: FERROUS SO4 325 MG TABLET (FP) PO SCH ×2 (07:53→17:54)
[2021-02-06] MEDS ORDERED: PT OWN MED DRAWER 7, Y5N ONE ×2 (09:14→19:43)
[2021-02-06] MEDS: ASPIRIN COATED 81 MG TABLET.EC PO SCH (10:21)
[2021-02-06] MEDS: PANTOPRAZOLE 20 MG TABLET PO SCH (10:21)
[2021-02-06] MEDS: TICAGRELOR 90 MG TABLET PO SCH ×2 (10:22→21:24)
[2021-02-06] MEDS: PRENATAL VITAMINS W/ FOLIC ACID TABLET (FP) PO SCH (10:22)
[2021-02-06] MEDS: ACETAMINOPHEN 325 MG TABLET (FP) PO PRN ×2 (14:58→21:25)
[2021-02-06] MEDS: ATORVASTATIN CA 40 MG TABLET (FP) PO SCH (21:24)
[2021-02-06] MEDS: THIAMINE HCL 100 MG TABLET (FP) PO SCH (21:25)
[2021-02-06] MEDS: MELATONIN 5 MG TABLETS PO SCH (21:28)
[2021-02-07] MEDS ORDERED: METHADONE PO ONE (06:00)
[2021-02-07] MEDS: methaDONE HCL 40 MG DISPERSABLE TABLET PO SCH (06:14)
[2021-02-07] MEDS: FERROUS SO4 325 MG TABLET (FP) PO SCH ×2 (07:14→16:51)
[2021-02-07] MEDS ORDERED: methaDONE HCL 10 MG TABLET PO ONE (07:52)
[2021-02-07] MEDS: ASPIRIN COATED 81 MG TABLET.EC PO SCH (09:43)
[2021-02-07] MEDS: TICAGRELOR 90 MG TABLET PO SCH ×2 (09:43→21:15)
[2021-02-07] MEDS: PRENATAL VITAMINS W/ FOLIC ACID TABLET (FP) PO SCH (09:43)
[2021-02-07] MEDS: PANTOPRAZOLE 20 MG TABLET PO SCH (09:43)
[2021-02-07] MEDS: ACETAMINOPHEN 325 MG TABLET (FP) PO PRN (16:34)
[2021-02-07] MEDS ORDERED: PT OWN MED DRAWER 7, Y5N ONE (20:37)
[2021-02-07] MEDS: ATORVASTATIN CA 40 MG TABLET (FP) PO SCH (21:15)
[2021-02-07] MEDS: THIAMINE HCL 100 MG TABLET (FP) PO SCH (21:16)
[2021-02-07] MEDS: MELATONIN 5 MG TABLETS PO SCH (21:16)
[2021-02-08] MEDS: methaDONE HCL 40 MG DISPERSABLE TABLET PO SCH (06:10)
[2021-02-08] MEDS: FERROUS SO4 325 MG TABLET (FP) PO SCH ×2 (07:16→16:49)
[2021-02-08] MEDS: PANTOPRAZOLE 20 MG TABLET PO SCH (10:11)
[2021-02-08] MEDS: ASPIRIN COATED 81 MG TABLET.EC PO SCH (10:11)
[2021-02-08] MEDS: PRENATAL VITAMINS W/ FOLIC ACID TABLET (FP) PO SCH (10:12)
[2021-02-08] MEDS ORDERED: PT OWN MED DRAWER 7, Y5N ONE ×2 (10:13→20:22)
[2021-02-08] MEDS: TICAGRELOR 90 MG TABLET PO SCH ×2 (10:13→21:17)
[2021-02-08] MEDS: ACETAMINOPHEN 325 MG TABLET (FP) PO PRN ×2 (14:08→21:18)
[2021-02-08] MEDS ORDERED: COLLOIDAL OATMEAL 1 BAR EACH TP ONE (15:58)
[2021-02-08] MEDS: COLLOIDAL OATMEAL 1 BAR EACH TP PRN (16:01)
[2021-02-08] MEDS: ATORVASTATIN CA 40 MG TABLET (FP) PO SCH (21:17)
[2021-02-08] MEDS: MELATONIN 5 MG TABLETS PO SCH (21:27)
[2021-02-08] MEDS: THIAMINE HCL 100 MG TABLET (FP) PO SCH (21:27)
[2021-02-09] MEDS: methaDONE HCL 40 MG DISPERSABLE TABLET PO SCH (06:05)
[2021-02-09] MEDS: FERROUS SO4 325 MG TABLET (FP) PO SCH ×2 (07:53→16:56)
[2021-02-09] MEDS ORDERED: PT OWN MED DRAWER 7, Y5N ONE ×2 (08:54→20:51)
[2021-02-09] MEDS: ASPIRIN COATED 81 MG TABLET.EC PO SCH (09:14)
[2021-02-09] MEDS: PRENATAL VITAMINS W/ FOLIC ACID TABLET (FP) PO SCH (09:14)
[2021-02-09] MEDS: PANTOPRAZOLE 20 MG TABLET PO SCH (09:14)
[2021-02-09] MEDS: TICAGRELOR 90 MG TABLET PO SCH ×2 (09:14→21:19)
[2021-02-09] MEDS: ACETAMINOPHEN 325 MG TABLET (FP) PO PRN ×2 (15:05→21:20)
[2021-02-09] MEDS: ATORVASTATIN CA 40 MG TABLET (FP) PO SCH (21:19)
[2021-02-09] MEDS: MELATONIN 5 MG TABLETS PO SCH (22:56)
[2021-02-09] MEDS: THIAMINE HCL 100 MG TABLET (FP) PO SCH (22:57)
[2021-02-10] MEDS: methaDONE HCL 40 MG DISPERSABLE TABLET PO SCH (06:15)
[2021-02-10] MEDS: FERROUS SO4 325 MG TABLET (FP) PO SCH ×2 (08:30→17:23)
[2021-02-10] MEDS: PANTOPRAZOLE 20 MG TABLET PO SCH (09:50)
[2021-02-10] MEDS: TICAGRELOR 90 MG TABLET PO SCH ×2 (09:50→21:12)
[2021-02-10] MEDS: ASPIRIN COATED 81 MG TABLET.EC PO SCH (09:50)
[2021-02-10] MEDS: PRENATAL VITAMINS W/ FOLIC ACID TABLET (FP) PO SCH (09:50)
[2021-02-10] MEDS ORDERED: PT OWN MED DRAWER 7, Y5N ONE (19:24)
[2021-02-10] MEDS: MELATONIN 5 MG TABLETS PO SCH (21:13)
[2021-02-10] MEDS: THIAMINE HCL 100 MG TABLET (FP) PO SCH (21:13)
[2021-02-10] MEDS: ATORVASTATIN CA 40 MG TABLET (FP) PO SCH (21:13)
[2021-02-10] MEDS: ACETAMINOPHEN 325 MG TABLET (FP) PO PRN (21:14)
[2021-02-11] MEDS: methaDONE HCL 40 MG DISPERSABLE TABLET PO SCH (06:24)
[2021-02-11] MEDS: FERROUS SO4 325 MG TABLET (FP) PO SCH ×2 (07:58→17:11)
[2021-02-11] MEDS: ASPIRIN COATED 81 MG TABLET.EC PO SCH (09:56)
[2021-02-11] MEDS: PANTOPRAZOLE 20 MG TABLET PO SCH (09:56)
[2021-02-11] MEDS: PRENATAL VITAMINS W/ FOLIC ACID TABLET (FP) PO SCH (09:56)
[2021-02-11] MEDS: TICAGRELOR 90 MG TABLET PO SCH ×2 (09:56→21:21)
[2021-02-11] MEDS: ACETAMINOPHEN 325 MG TABLET (FP) PO PRN ×2 (15:49→21:21)
[2021-02-11] MEDS ORDERED: PT OWN MED DRAWER 7, Y5N ONE (19:25)
[2021-02-11] MEDS: ATORVASTATIN CA 40 MG TABLET (FP) PO SCH (21:20)
[2021-02-11] MEDS: MELATONIN 5 MG TABLETS PO SCH (21:21)
[2021-02-11] MEDS: THIAMINE HCL 100 MG TABLET (FP) PO SCH (21:21)
[2021-02-12] MEDS: methaDONE HCL 40 MG DISPERSABLE TABLET PO SCH (06:21)
[2021-02-12] MEDS: FERROUS SO4 325 MG TABLET (FP) PO SCH ×2 (07:20→16:42)
[2021-02-12] MEDS: PANTOPRAZOLE 20 MG TABLET PO SCH (09:23)
[2021-02-12] MEDS: ASPIRIN COATED 81 MG TABLET.EC PO SCH (09:23)
[2021-02-12] MEDS: PRENATAL VITAMINS W/ FOLIC ACID TABLET (FP) PO SCH (09:23)
[2021-02-12] MEDS: TICAGRELOR 90 MG TABLET PO SCH ×2 (09:23→21:25)
[2021-02-12] MEDS: ACETAMINOPHEN 325 MG TABLET (FP) PO PRN (09:24)
[2021-02-12] MEDS ORDERED: PT OWN MED DRAWER 7, Y5N ONE (20:40)
[2021-02-12] MEDS: ATORVASTATIN CA 40 MG TABLET (FP) PO SCH (21:25)
[2021-02-12] MEDS: THIAMINE HCL 100 MG TABLET (FP) PO SCH (21:27)
[2021-02-12] MEDS: MELATONIN 5 MG TABLETS PO SCH (23:31)
[2021-02-13] MEDS: methaDONE HCL 40 MG DISPERSABLE TABLET PO SCH (06:08)
[2021-02-13] MEDS: FERROUS SO4 325 MG TABLET (FP) PO SCH ×2 (07:36→16:52)
[2021-02-13] MEDS: TICAGRELOR 90 MG TABLET PO SCH ×2 (09:42→21:22)
[2021-02-13] MEDS: PRENATAL VITAMINS W/ FOLIC ACID TABLET (FP) PO SCH (09:43)
[2021-02-13] MEDS: ACETAMINOPHEN 325 MG TABLET (FP) PO PRN ×2 (09:43→16:50)
[2021-02-13] MEDS: PANTOPRAZOLE 20 MG TABLET PO SCH (09:43)
[2021-02-13] MEDS: ASPIRIN COATED 81 MG TABLET.EC PO SCH (09:43)
[2021-02-13] MEDS ORDERED: PT OWN MED DRAWER 7, Y5N ONE (20:33)
[2021-02-13] MEDS: ATORVASTATIN CA 40 MG TABLET (FP) PO SCH (21:22)
[2021-02-13] MEDS: MELATONIN 5 MG TABLETS PO SCH (21:23)
[2021-02-13] MEDS: THIAMINE HCL 100 MG TABLET (FP) PO SCH (21:23)
[2021-02-14] MEDS: methaDONE HCL 40 MG DISPERSABLE TABLET PO SCH (06:23)
[2021-02-14] MEDS: FERROUS SO4 325 MG TABLET (FP) PO SCH ×2 (09:20→17:44)
[2021-02-14] MEDS: PRENATAL VITAMINS W/ FOLIC ACID TABLET (FP) PO SCH (09:20)
[2021-02-14] MEDS: PANTOPRAZOLE 20 MG TABLET PO SCH (09:20)
[2021-02-14] MEDS: TICAGRELOR 90 MG TABLET PO SCH ×2 (09:20→21:13)
[2021-02-14] MEDS: ASPIRIN COATED 81 MG TABLET.EC PO SCH (09:20)
[2021-02-14] MEDS: ACETAMINOPHEN 325 MG TABLET (FP) PO PRN ×2 (09:21→21:14)
[2021-02-14 10:27] LABS: HEMATOCRIT 31.1 % (35.4-49); HEMOGLOBIN 10.2 GM/dL (11.7-16.9); MCHC 32.9 g/dl (32.0-35.9); MEAN CELL VOLUME 79.1 fl (80-96); MEAN PLT VOLUME 8.1 fl (7.5-11.1); PLATELET COUNT 353 10^3/uL (134-434); RBC 3.93 M/mm3 (4.00-5.60); RDW 16.1 % (11.9-15.9); WHITE BLOOD COUNT 5.3 K/mm3 (4.0-10.0)
[2021-02-14 10:38] LABS: PROTHROMBIN TIME (PATIENT) 11.7 SEC (9.7-13.0)
[2021-02-14 11:35] LABS: ALBUMIN 3.4 g/dl (3.4-5.0); BILIRUBIN,TOTAL 0.4 mg/dL (0.2-1); BLOOD UREA NITROGEN 17.4 mg/dL (7-18); CALCIUM 8.9 mg/dL (8.5-10.1); CREATININE 0.9 mg/dL (0.55-1.3); TOT PROT 7.1 g/dl (6.4-8.2)
[2021-02-14] MEDS ORDERED: PT OWN MED DRAWER 7, Y5N ONE (19:59)
[2021-02-14] MEDS: ATORVASTATIN CA 40 MG TABLET (FP) PO SCH (21:14)
[2021-02-14] MEDS: MELATONIN 5 MG TABLETS PO SCH (21:14)
[2021-02-14] MEDS: THIAMINE HCL 100 MG TABLET (FP) PO SCH (21:14)
[2021-02-15] MEDS: methaDONE HCL 40 MG DISPERSABLE TABLET PO SCH (06:08)
[2021-02-15] MEDS: FERROUS SO4 325 MG TABLET (FP) PO SCH ×2 (07:40→17:22)
[2021-02-15] MEDS ORDERED: PT OWN MED DRAWER 7, Y5N ONE (08:45)
[2021-02-15] MEDS: PRENATAL VITAMINS W/ FOLIC ACID TABLET (FP) PO SCH (09:36)
[2021-02-15] MEDS: PANTOPRAZOLE 20 MG TABLET PO SCH (09:36)
[2021-02-15] MEDS: ASPIRIN COATED 81 MG TABLET.EC PO SCH (09:36)
[2021-02-15] MEDS: TICAGRELOR 90 MG TABLET PO SCH ×2 (09:36→21:07)
[2021-02-15] MEDS: ATORVASTATIN CA 40 MG TABLET (FP) PO SCH (21:07)
[2021-02-15] MEDS: THIAMINE HCL 100 MG TABLET (FP) PO SCH (21:07)
[2021-02-15] MEDS: MELATONIN 5 MG TABLETS PO SCH (21:08)
[2021-02-15] MEDS: ACETAMINOPHEN 325 MG TABLET (FP) PO PRN (21:09)
[2021-02-16] MEDS: methaDONE HCL 40 MG DISPERSABLE TABLET PO SCH (06:22)
[2021-02-16] MEDS: FERROUS SO4 325 MG TABLET (FP) PO SCH ×2 (08:39→16:58)
[2021-02-16] MEDS: ASPIRIN COATED 81 MG TABLET.EC PO SCH (09:32)
[2021-02-16] MEDS: PANTOPRAZOLE 20 MG TABLET PO SCH (09:32)
[2021-02-16] MEDS: TICAGRELOR 90 MG TABLET PO SCH ×2 (09:32→21:24)
[2021-02-16] MEDS: PRENATAL VITAMINS W/ FOLIC ACID TABLET (FP) PO SCH (09:33)
[2021-02-16] MEDS: ACETAMINOPHEN 325 MG TABLET (FP) PO PRN (09:34)
[2021-02-16] MEDS: MAGNESIUM HYDROX 2400MG/30ML ORAL SUSPENSION 30 ML CUP PO PRN (16:59)
[2021-02-16] MEDS: ATORVASTATIN CA 40 MG TABLET (FP) PO SCH (21:24)
[2021-02-16] MEDS ORDERED: PT OWN MED DRAWER 7, Y5N ONE (21:26)
[2021-02-16] MEDS: THIAMINE HCL 100 MG TABLET (FP) PO SCH (21:26)
[2021-02-17] MEDS: MELATONIN 5 MG TABLETS PO SCH (00:12)
[2021-02-17] MEDS: methaDONE HCL 40 MG DISPERSABLE TABLET PO SCH (06:23)
[2021-02-17] MEDS: ACETAMINOPHEN 325 MG TABLET (FP) PO PRN ×2 (06:38→21:30)
[2021-02-17] MEDS: TICAGRELOR 90 MG TABLET PO SCH ×2 (09:30→21:30)
[2021-02-17] MEDS: ASPIRIN COATED 81 MG TABLET.EC PO SCH (09:30)
[2021-02-17] MEDS: PRENATAL VITAMINS W/ FOLIC ACID TABLET (FP) PO SCH (09:30)
[2021-02-17] MEDS: FERROUS SO4 325 MG TABLET (FP) PO SCH ×2 (09:30→16:59)
[2021-02-17] MEDS: PANTOPRAZOLE 20 MG TABLET PO SCH (09:31)
[2021-02-17] MEDS ORDERED: PT OWN MED DRAWER 7, Y5N ONE (20:13)
[2021-02-17] MEDS: ATORVASTATIN CA 40 MG TABLET (FP) PO SCH (21:30)
[2021-02-18] MEDS: methaDONE HCL 40 MG DISPERSABLE TABLET PO SCH (06:08)
[2021-02-18] MEDS: FERROUS SO4 325 MG TABLET (FP) PO SCH ×2 (07:01→16:35)
[2021-02-18] MEDS ORDERED: PT OWN MED DRAWER 7, Y5N ONE ×2 (08:25→20:05)
[2021-02-18] MEDS: TICAGRELOR 90 MG TABLET PO SCH ×2 (09:11→21:11)
[2021-02-18] MEDS: PANTOPRAZOLE 20 MG TABLET PO SCH (09:12)
[2021-02-18] MEDS: ASPIRIN COATED 81 MG TABLET.EC PO SCH (09:12)
[2021-02-18] MEDS: PRENATAL VITAMINS W/ FOLIC ACID TABLET (FP) PO SCH (09:12)
[2021-02-18] MEDS: ATORVASTATIN CA 40 MG TABLET (FP) PO SCH (21:11)
[2021-02-18] MEDS: MELATONIN 5 MG TABLETS PO SCH ×2 (21:11)
[2021-02-18] MEDS: THIAMINE HCL 100 MG TABLET (FP) PO SCH ×2 (21:12)
[2021-02-19] MEDS: methaDONE HCL 40 MG DISPERSABLE TABLET PO SCH (06:06)
[2021-02-19] MEDS: FERROUS SO4 325 MG TABLET (FP) PO SCH ×2 (07:03→17:29)
[2021-02-19] MEDS: TICAGRELOR 90 MG TABLET PO SCH ×2 (09:48→21:22)
[2021-02-19] MEDS: ASPIRIN COATED 81 MG TABLET.EC PO SCH (09:48)
[2021-02-19] MEDS: PANTOPRAZOLE 20 MG TABLET PO SCH (09:48)
[2021-02-19] MEDS: PRENATAL VITAMINS W/ FOLIC ACID TABLET (FP) PO SCH (09:49)
[2021-02-19] MEDS: ACETAMINOPHEN 325 MG TABLET (FP) PO PRN (11:12)
[2021-02-19] MEDS ORDERED: PT OWN MED DRAWER 7, Y5N ONE ×2 (19:59→21:27)
[2021-02-19] MEDS: ATORVASTATIN CA 40 MG TABLET (FP) PO SCH (21:22)
[2021-02-19] MEDS: MELATONIN 5 MG TABLETS PO SCH (21:23)
[2021-02-19] MEDS: THIAMINE HCL 100 MG TABLET (FP) PO SCH (21:24)
[2021-02-19] MEDS: AMMONIUM LACTATE 12% LOTION 225 GM BOTTLE TP SCH (21:26)
[2021-02-19] MEDS: COLLOIDAL OATMEAL 1 BAR EACH TP PRN (21:28)
[2021-02-20] MEDS: methaDONE HCL 40 MG DISPERSABLE TABLET PO SCH (06:20)
[2021-02-20] MEDS: FERROUS SO4 325 MG TABLET (FP) PO SCH ×2 (08:00→16:41)
[2021-02-20] MEDS: AMMONIUM LACTATE 12% LOTION 225 GM BOTTLE TP SCH ×2 (09:32→21:16)
[2021-02-20] MEDS: TICAGRELOR 90 MG TABLET PO SCH ×2 (09:33→21:15)
[2021-02-20] MEDS: PRENATAL VITAMINS W/ FOLIC ACID TABLET (FP) PO SCH (09:33)
[2021-02-20] MEDS: ASPIRIN COATED 81 MG TABLET.EC PO SCH (09:33)
[2021-02-20] MEDS: PANTOPRAZOLE 20 MG TABLET PO SCH (09:33)
[2021-02-20] MEDS ORDERED: PT OWN MED DRAWER 7, Y5N ONE ×2 (11:39→20:38)
[2021-02-20] MEDS: MELATONIN 5 MG TABLETS PO SCH (21:15)
[2021-02-20] MEDS: ATORVASTATIN CA 40 MG TABLET (FP) PO SCH (21:15)
[2021-02-20] MEDS: THIAMINE HCL 100 MG TABLET (FP) PO SCH (21:16)
[2021-02-21] MEDS: methaDONE HCL 40 MG DISPERSABLE TABLET PO SCH (06:09)
[2021-02-21] MEDS: ACETAMINOPHEN 325 MG TABLET (FP) PO PRN (06:10)
[2021-02-21] MEDS: FERROUS SO4 325 MG TABLET (FP) PO SCH ×2 (09:00→17:08)
[2021-02-21] MEDS: PANTOPRAZOLE 20 MG TABLET PO SCH (09:23)
[2021-02-21] MEDS: PRENATAL VITAMINS W/ FOLIC ACID TABLET (FP) PO SCH (09:23)
[2021-02-21] MEDS: ASPIRIN COATED 81 MG TABLET.EC PO SCH (09:23)
[2021-02-21] MEDS: TICAGRELOR 90 MG TABLET PO SCH ×2 (09:23→21:30)
[2021-02-21] MEDS: AMMONIUM LACTATE 12% LOTION 225 GM BOTTLE TP SCH ×2 (09:23→21:31)
[2021-02-21] MEDS ORDERED: PT OWN MED DRAWER 7, Y5N ONE (20:44)
[2021-02-21] MEDS: ATORVASTATIN CA 40 MG TABLET (FP) PO SCH (21:30)
[2021-02-21] MEDS: MELATONIN 5 MG TABLETS PO SCH (21:30)
[2021-02-21] MEDS: THIAMINE HCL 100 MG TABLET (FP) PO SCH (21:31)
[2021-02-22] MEDS: methaDONE HCL 40 MG DISPERSABLE TABLET PO SCH (06:07)
[2021-02-22] MEDS: FERROUS SO4 325 MG TABLET (FP) PO SCH ×2 (07:03→17:49)
[2021-02-22] MEDS: PRENATAL VITAMINS W/ FOLIC ACID TABLET (FP) PO SCH (09:40)
[2021-02-22] MEDS: ASPIRIN COATED 81 MG TABLET.EC PO SCH (09:40)
[2021-02-22] MEDS: TICAGRELOR 90 MG TABLET PO SCH ×2 (09:40→21:22)
[2021-02-22] MEDS: PANTOPRAZOLE 20 MG TABLET PO SCH (09:40)
[2021-02-22] MEDS: AMMONIUM LACTATE 12% LOTION 225 GM BOTTLE TP SCH ×2 (09:40→21:23)
[2021-02-22] MEDS ORDERED: PT OWN MED DRAWER 7, Y5N ONE (19:34)
[2021-02-22] MEDS: MELATONIN 5 MG TABLETS PO SCH (21:22)
[2021-02-22] MEDS: ATORVASTATIN CA 40 MG TABLET (FP) PO SCH (21:22)
[2021-02-22] MEDS: THIAMINE HCL 100 MG TABLET (FP) PO SCH (21:52)
[2021-02-23] MEDS: methaDONE HCL 40 MG DISPERSABLE TABLET PO SCH (06:13)
[2021-02-23] MEDS: FERROUS SO4 325 MG TABLET (FP) PO SCH ×2 (07:45→16:58)
[2021-02-23] MEDS: PRENATAL VITAMINS W/ FOLIC ACID TABLET (FP) PO SCH (09:36)
[2021-02-23] MEDS: AMMONIUM LACTATE 12% LOTION 225 GM BOTTLE TP SCH ×2 (09:36→21:16)
[2021-02-23] MEDS: ASPIRIN COATED 81 MG TABLET.EC PO SCH (09:36)
[2021-02-23] MEDS: PANTOPRAZOLE 20 MG TABLET PO SCH (09:36)
[2021-02-23] MEDS: TICAGRELOR 90 MG TABLET PO SCH ×2 (09:36→21:16)
[2021-02-23] MEDS ORDERED: PT OWN MED DRAWER 7, Y5N ONE (20:39)
[2021-02-23] MEDS: MELATONIN 5 MG TABLETS PO SCH (21:15)
[2021-02-23] MEDS: ATORVASTATIN CA 40 MG TABLET (FP) PO SCH (21:15)
[2021-02-23] MEDS: THIAMINE HCL 100 MG TABLET (FP) PO SCH (21:16)
[2021-02-24] MEDS: methaDONE HCL 40 MG DISPERSABLE TABLET PO SCH (06:13)
[2021-02-24] MEDS: FERROUS SO4 325 MG TABLET (FP) PO SCH ×2 (08:19→16:50)
[2021-02-24] MEDS ORDERED: PT OWN MED DRAWER 7, Y5N ONE ×2 (09:26→19:35)
[2021-02-24] MEDS: ASPIRIN COATED 81 MG TABLET.EC PO SCH (10:34)
[2021-02-24] MEDS: PANTOPRAZOLE 20 MG TABLET PO SCH (10:35)
[2021-02-24] MEDS: AMMONIUM LACTATE 12% LOTION 225 GM BOTTLE TP SCH ×2 (10:35→21:18)
[2021-02-24] MEDS: TICAGRELOR 90 MG TABLET PO SCH ×2 (10:35→21:17)
[2021-02-24] MEDS: PRENATAL VITAMINS W/ FOLIC ACID TABLET (FP) PO SCH (10:35)
[2021-02-24] MEDS: ATORVASTATIN CA 40 MG TABLET (FP) PO SCH (21:17)
[2021-02-24] MEDS: MELATONIN 5 MG TABLETS PO SCH (21:18)
[2021-02-24] MEDS: THIAMINE HCL 100 MG TABLET (FP) PO SCH (21:18)
[2021-02-24] MEDS: ACETAMINOPHEN 325 MG TABLET (FP) PO PRN (23:58)
[2021-02-25] MEDS: methaDONE HCL 40 MG DISPERSABLE TABLET PO SCH (06:22)
[2021-02-25] MEDS: FERROUS SO4 325 MG TABLET (FP) PO SCH ×2 (08:48→17:44)
[2021-02-25] MEDS: AMMONIUM LACTATE 12% LOTION 225 GM BOTTLE TP SCH ×2 (09:39→21:35)
[2021-02-25] MEDS: TICAGRELOR 90 MG TABLET PO SCH ×2 (09:39→21:34)
[2021-02-25] MEDS: PRENATAL VITAMINS W/ FOLIC ACID TABLET (FP) PO SCH (09:39)
[2021-02-25] MEDS: ASPIRIN COATED 81 MG TABLET.EC PO SCH (09:39)
[2021-02-25] MEDS: PANTOPRAZOLE 20 MG TABLET PO SCH (10:14)
[2021-02-25] MEDS ORDERED: PT OWN MED DRAWER 7, Y5N ONE (19:48)
[2021-02-25] MEDS: THIAMINE HCL 100 MG TABLET (FP) PO SCH (21:34)
[2021-02-25] MEDS: MELATONIN 5 MG TABLETS PO SCH (21:34)
[2021-02-25] MEDS: ATORVASTATIN CA 40 MG TABLET (FP) PO SCH (21:34)
[2021-02-25] MEDS: MAGNESIUM HYDROX 2400MG/30ML ORAL SUSPENSION 30 ML CUP PO PRN (21:50)
[2021-02-26] MEDS: methaDONE HCL 40 MG DISPERSABLE TABLET PO SCH (06:22)
[2021-02-26] MEDS ORDERED: PT OWN MED DRAWER 7, Y5N ONE ×2 (08:35→20:44)
[2021-02-26] MEDS: ASPIRIN COATED 81 MG TABLET.EC PO SCH (09:26)
[2021-02-26] MEDS: FERROUS SO4 325 MG TABLET (FP) PO SCH ×2 (09:27→16:43)
[2021-02-26] MEDS: TICAGRELOR 90 MG TABLET PO SCH ×2 (09:27→21:13)
[2021-02-26] MEDS: AMMONIUM LACTATE 12% LOTION 225 GM BOTTLE TP SCH ×2 (09:28→21:13)
[2021-02-26] MEDS: PRENATAL VITAMINS W/ FOLIC ACID TABLET (FP) PO SCH (09:28)
[2021-02-26] MEDS: ACETAMINOPHEN 325 MG TABLET (FP) PO PRN ×2 (11:19→22:02)
[2021-02-26] MEDS: PANTOPRAZOLE 20 MG TABLET PO SCH (12:11)
[2021-02-26] MEDS: MELATONIN 5 MG TABLETS PO SCH (21:12)
[2021-02-26] MEDS: THIAMINE HCL 100 MG TABLET (FP) PO SCH (21:13)
[2021-02-26] MEDS: ATORVASTATIN CA 40 MG TABLET (FP) PO SCH (21:13)
[2021-02-27] MEDS: methaDONE HCL 40 MG DISPERSABLE TABLET PO SCH (06:10)
[2021-02-27 06:57] VITALS: PULSE 54; TEMP 97.3
[2021-02-27] MEDS: FERROUS SO4 325 MG TABLET (FP) PO SCH (07:39)
[2021-02-27] MEDS: PANTOPRAZOLE 20 MG TABLET PO SCH (09:27)
[2021-02-27] MEDS: ASPIRIN COATED 81 MG TABLET.EC PO SCH (09:27)
[2021-02-27] MEDS: TICAGRELOR 90 MG TABLET PO SCH (09:28)
[2021-02-27] MEDS: PRENATAL VITAMINS W/ FOLIC ACID TABLET (FP) PO SCH (09:28)
[2021-02-27] MEDS: AMMONIUM LACTATE 12% LOTION 225 GM BOTTLE TP SCH (09:29)
[2021-02-27 09:45] VITALS: BP 154/83
== END 2021-02-27 09:50 | disposition home or self-care (01) | DRG 895 ==
LOC: YASAS 15:35 → Y3E 18:47
PROVIDERS: ADMIT Allergy & Immunology; ATTEND Allergy & Immunology
PROC: HZ42ZZZ Group Counseling for Substance Abuse Treatment, Cognitive-Behavioral (ICD-10-PCS; principal; 2021-01-30)
DX: F13.20 Sedative, hypnotic or anxiolytic dependence, uncomplicated (principal); F11.20 Opioid dependence, uncomplicated; F14.20 Cocaine dependence, uncomplicated; F19.282 Other psychoactive substance dependence with psychoactive substance-induced sleep disorder; F17.210 Nicotine dependence, cigarettes, uncomplicated; I10 Essential (primary) hypertension; I44.0 Atrioventricular block, first degree; I45.81 Long QT syndrome; I25.10 Atherosclerotic heart disease of native coronary artery without angina pectoris; I25.2 Old myocardial infarction; E78.5 Hyperlipidemia, unspecified; N40.0 Benign prostatic hyperplasia without lower urinary tract symptoms; K21.9 Gastro-esophageal reflux disease without esophagitis; B18.2 Chronic viral hepatitis C; M41.9 Scoliosis, unspecified; I83.93 Asymptomatic varicose veins of bilateral lower extremities; R00.1 Bradycardia, unspecified; R01.1 Cardiac murmur, unspecified; I45.10 Unspecified right bundle-branch block; R94.5 Abnormal results of liver function studies; R26.2 Difficulty in walking, not elsewhere classified; Z99.89 Dependence on other enabling machines and devices; Z95.5 Presence of coronary angioplasty implant and graft
CPT/HCPCS: 36415; 80053; 82962; 85027; 85610; 86780; 87811; 93005; 93010; C9803; U0003; U0005